=== PATIENT | male | born 1975 | race Caucasian/White ===

== ENCOUNTER 2020-05-17 07:45 | Outpatient (CLI) | payer BC ==
[2020-05-17 13:29] LABS: ALBUMIN 4.2 g/dL (3.2-5.5); ALBUMIN/GLOBULIN RATIO 1.4 (1.0-2.2); ALKALINE PHOSPHATASE 35 IU/L (42-121); ALT ALANINE AMINOTRANSFERASE 21 IU/L (10-60); AST ASPARTATE AMINOTRANSFERASE 19 IU/L (10-42); BILIRUBIN,TOTAL 0.8 mg/dL (0.2-1.0); BUN - BLOOD UREA NITROGEN 14 mg/dL (6-20); CALCIUM 9.3 mg/dL (8.5-10.3); CARBON DIOXIDE - CO2 27 mmol/L (21-32); CHLORIDE 101 mmol/L (101-111); CHOL/HDL RATIO 2.8 (<5.0); CHOLESTEROL 194 mg/dL; CREATININE 0.8 mg/dL (0.6-1.2); GLUCOSE 108 mg/dL (70-100); HDL CHOLESTEROL 69 mg/dL; LDL CHOLESTEROL,CALCULATED 104 mg/dL; LDL/HDL RATIO 1.5 (<3.6); TOTAL PROTEIN 7.1 g/dL (6.7-8.2); VLDL CHOLESTEROL 21 mg/dL
[2020-05-17 13:30] LABS: BASOPHILS % (AUTO) 0.5 %; EOSINOPHILS # (AUTO) 0.1 10^3/uL (0.0-0.7); EOSINOPHILS % (AUTO) 1.8 %; HGB - HEMOGLOBIN 15.1 g/dL (14.0-18.0); LYMPHOCYTES # (AUTO) 1.6 10^3/uL (1.5-3.5); LYMPHOCYTES % (AUTO) 35.9 %; MEAN CORPUSCULAR HEMOGLOBIN 30.4 pg (27.0-31.0); MEAN CORPUSCULAR HGB CONC 32.7 g/dL (32.0-36.0); MEAN CORPUSCULAR VOLUME 93.1 fL (80.0-94.0); MEAN PLATELET VOLUME 11.9 fL (7.4-11.4); MONOCYTES # (AUTO) 0.4 10^3/uL (0.0-1.0); MONOCYTES % (AUTO) 9.4 %; NEUTROPHILS # (AUTO) 2.3 10^3/uL (1.5-6.6); NEUTROPHILS % (AUTO) 52.2 %; PLT - PLATELET COUNT 175 10^3/uL (130-450); RED BLOOD COUNT 4.96 10^6/uL (4.70-6.10); WHITE BLOOD COUNT 4.4 x10^3/uL (4.8-10.8)
== END 2020-05-17 23:59 | disposition home or self-care (01) ==
LOC: LAB.WCP 07:45
PROVIDERS: ATTEND Family Medicine
DX: Z00.00 Encounter for general adult medical examination without abnormal findings (principal); I10 Essential (primary) hypertension; F41.9 Anxiety disorder, unspecified
CPT/HCPCS: 36415; 80053; 80061; 83721; 84443; 85025

== ENCOUNTER 2020-05-23 17:06 | Outpatient (CLI) | payer BC | END 2020-05-23 17:07 | disposition critical access hospital (66) | LOC: EMS 17:06 | PROVIDERS: ATTEND Surgery | DX: R11.2 Nausea with vomiting, unspecified (principal); R51.9 Headache, unspecified | CPT/HCPCS: A0425; A0427 ==

== ENCOUNTER 2020-05-23 17:15 | Emergency (ER) | payer BC ==
[2020-05-23] MEDS ORDERED: PROMETHAZINE INJ 25 MG in SODIUM CHLORIDE 0.9% 50 ML IV STA (17:25)
[2020-05-23] MEDS ORDERED: SODIUM CHLORIDE 0.9% 1,000 ML IV STA (17:25)
--- NOTE | 2020-05-23 17:50 | ED Physician Documentation ---
History of Present Illness - Stated complaint Stated Complaint: N/V - Chief complaint Chief Complaint: Abd Pain - History obtained from History obtained from: Patient, EMS - History of Present Illness Timing: Today, How many hours ago (2) Pain level max: 10 Pain level now: 10 - Additonal information Additional information: 44-year-old male presents to the emergency department with nausea and vomiting that started about 2 hours prior to arrival. Since then has had a gradual onset headache, right side of the head. Rates as an 8 out of 10. Nothing makes it better or worse. Given Zofran with EMS without relief. Denies any trauma. Denies any alcohol. States [facility] states that the vomiting started shortly after that. Patient has a history of hypertension. Patient has a history of hypertension. Recently had his losartan increased from 50 mg to 100 mg Review of Systems Ten Systems: 10 systems reviewed and negative Constitutional: denies: Fever, Chills Ears: denies: Ear pain Nose: denies: Rhinorrhea / runny nose, Congestion Respiratory: denies: Cough GI: denies: Nausea, Vomiting, Diarrhea PD PAST MEDICAL HISTORY - Past Medical History Past Medical History: Yes Cardiovascular: Hypertension - Present Medications Home Medications: Ambulatory Orders Medication Instructions Recorded Confirmed Losartan [Cozaar] 100 mg PO DAILY 05/23/20 05/23/20 - Allergies Allergies/Adverse Reactions: Allergies Allergy/AdvReac Type Severity Reaction Status Date / Time No Known Drug Allergies Allergy Verified 05/23/20 17:23 - Living Situation Living Situation: reports: With family Living Arrangement: reports: At home - Social History Does the pt drink ETOH?: Yes - Family History Family history: reports: Non contributory PD ED PE NORMAL - Vitals Vital signs reviewed: Yes - General General: No acute distress, Well developed/nourished, Other (drowsy, keeps eyes closed, answers appropriately) - HEENT HEENT: Atraumatic, PERRL, Moist mucous membranes - Neck Neck: Supple, no meningeal sign - Cardiac Cardiac: RRR, Strong equal pulses - Respiratory Respiratory: No respiratory distress, Clear bilaterally - Abdomen Abdomen: Soft, Non tender, Non distended - Derm Derm: Warm and dry - Extremities Extremities: No edema, No calf tenderness / cord - Neuro Neuro: Other (alert, drowsy) - Psych Psych: Normal mood, Normal affect Results - Vitals Vitals: Vital Signs - 24 hr 05/23/20 05/23/20 05/23/20 17:23 18:02 18:12 Temperature 36.1 C L Heart Rate 77 85 82 Respiratory 24 16 18 Rate Blood Pressure 154/88 H 137/90 H 137/90 H O2 Saturation 100 100 98 05/23/20 05/23/20 05/23/20 18:13 18:24 18:25 Temperature Heart Rate 82 85 101 H Respiratory 13 12 40 H Rate Blood Pressure 167/84 H 133/107 H O2 Saturation 99 100 100 05/23/20 05/23/20 05/23/20 18:26 18:32 18:38 Temperature Heart Rate 100 88 50 L Respiratory 16 15 Rate Blood Pressure 91/34 L 145/112 H 151/64 H O2 Saturation 100 100 100 05/23/20 05/23/20 05/23/20 18:40 18:43 18:46 Temperature Heart Rate 78 85 81 Respiratory 13 13 14 Rate Blood Pressure 142/74 H 142/74 H 138/78 H O2 Saturation 100 100 100 Oxygen O2 Source Mechanical ventilator - Labs Labs: Laboratory Tests 05/23/20 05/23/20 05/23/20 17:50 17:57 17:57 WBC 12.2 H RBC 4.85 Hgb 14.9 Hct 44.0 MCV 90.7 MCH 30.7 MCHC 33.9 RDW 11.8 L Plt Count 159 MPV 11.3 Neut # (Auto) 10.6 H Lymph # (Auto) 1.2 L [place] # (Auto) 0.4 Eos # (Auto) 0.0 Baso # (Auto) 0.0 Absolute Nucleated RBC 0.00 Nucleated RBC % 0.0 PT 13.3 H INR 1.2 APTT 21.0 L Sodium 140 Potassium 3.9 Chloride 103 Carbon Dioxide 25 Anion Gap 12.0 BUN 12 Creatinine 0.8 Estimated GFR (MDRD) 105 Glucose 156 H Calcium 9.6 Total Bilirubin 0.7 AST 22 ALT 20 Alkaline Phosphatase 35 L Total Protein 7.3 Albumin 4.4 Globulin 2.9 Albumin/Globulin Ratio 1.5 Lipase 39 Nasal Adenovirus (PCR) Nasal B. parapertussis DNA (PCR) Nasal Coronavir 229E PCR Nasal Coronavir HKU1 PCR Nasal Coronavir NL63 PCR Nasal Coronavir OC43 PCR Nasal Enterovir/Rhinovir PCR Nasal Influenza B PCR Nasal Influenza A PCR Nasal Parainfluen 1 PCR Nasal Parainfluen 2 PCR Nasal Parainfluen 3 PCR Nasal Parainfluen 4 PCR Nasal RSV (PCR) Nasal B.pertussis DNA PCR Nasal C.pneumoniae (PCR) Donte Human Metapneumo PCR Nasal M.pneumoniae (PCR) Nasal SARS-CoV-2 (PCR) Ethyl Alcohol < 5.0 05/23/20 18:35 WBC RBC Hgb Hct MCV MCH MCHC RDW Plt Count MPV Neut # (Auto) Lymph # (Auto) [place] # (Auto) Eos # (Auto) Baso # (Auto) Absolute Nucleated RBC Nucleated RBC % PT INR APTT Sodium Potassium Chloride Carbon Dioxide Anion Gap BUN Creatinine Estimated GFR (MDRD) Glucose Calcium Total Bilirubin AST ALT Alkaline Phosphatase Total Protein Albumin Globulin Albumin/Globulin Ratio Lipase Nasal Adenovirus (PCR) NOT DETECTED Nasal B. parapertussis DNA (PCR) NOT DETECTED Nasal Coronavir 229E PCR NOT DETECTED Nasal Coronavir HKU1 PCR NOT DETECTED Nasal Coronavir NL63 PCR NOT DETECTED Nasal Coronavir OC43 PCR NOT DETECTED Nasal Enterovir/Rhinovir PCR NOT DETECTED Nasal Influenza B PCR NOT DETECTED Nasal Influenza A PCR NOT DETECTED Nasal Parainfluen 1 PCR NOT DETECTED Nasal Parainfluen 2 PCR NOT DETECTED Nasal Parainfluen 3 PCR NOT DETECTED Nasal Parainfluen 4 PCR NOT DETECTED Nasal RSV (PCR) NOT DETECTED Nasal B.pertussis DNA PCR NOT DETECTED Nasal C.pneumoniae (PCR) NOT DETECTED Donte Human Metapneumo PCR NOT DETECTED Nasal M.pneumoniae (PCR) NOT DETECTED Nasal SARS-CoV-2 (PCR) NOT DETECTED Ethyl Alcohol - Rads (name of study) head CT Radiology: Prelim report reviewed, EMP read contemporaneously, See rad report cxr Radiology: Prelim report reviewed, EMP read contemporaneously, See rad report Procedures - Intubation Provider: Emergency physician Medications: Etomidate, Rocuronium Blade: Glidescope Tube: Size-enter number (7.5), Marked at teeth-enter cm (23) Route: Oral Confirmation: Direct visualization, Bilateral breath sounds, No abdominal breath sound, End tidal CO2, Pulse ox, Chest xray Complications: No compications PD MEDICAL DECISION MAKING - ED course Complexity details: reviewed results, re-evaluated patient, considered differential, d/w patient, d/w principal consultant ED course: contacted [facility] @ [phone] for transfer. [facility] paged to the ER for transport. Callback received from neurosurgery, Dr. Garza at approximately 1818. At that point the patient started to deteriorate further, became less responsive and started to have posturing. No longer verbal. The patient was then intubated. Mannitol and hypertonic saline were given. Pupils remain equal and reactive. Patient became briefly hypotensive after intubation, systolic around 90-95. The mannitol was stopped, the hypertonic saline was continued. Nicardipine drip was started as well. BP improved. Goal is less than 140 SBP. Discussed the case with the ER physician at [facility] in [place]. Patient was life flighted to [facility] for definitive care. Patient is not on any blood thinners. Case was discussed with his at bedside. COBRA forms completed. This document was made in part using voice recognition software. While efforts are made to proofread this document, sound alike and grammatical errors may occur. IMPRESSION: Prominent intraparenchymal hemorrhage, which is centered within the right frontal lobe. There is associated mass effect seen, with midline shift of 8 to 9 mm. The right lateral ventricle is effaced. The basal cisterns remain patent, yet are narrowed. There is minimal, early subfalcine herniation. No: Clinical finding of acute intracranial hemorrhage discussed by telephone with Dr. Yi at 5:02 PM [place] time on 05/23/2020. IMPRESSION: Appropriate position of endotracheal tube. Nonspecific increased interstitial markings bilaterally. Departure - Departure Disposition: 02 Transfer Acute Care Hosp Clinical Impression: Intracerebral hemorrhage Qualifiers: Intracerebral hemorrhage etiology: nontraumatic Cerebral hemorrhage location: cerebral hemisphere, unspecified portion Laterality: right Qualified Code(s): I61.2 - Nontraumatic intracerebral hemorrhage in hemisphere, unspecified Condition: Serious Discharge Date/Time: 05/23/20 18:57
[2020-05-23] MEDS ORDERED: levETIRAcetam INJ 1,000 MG in SODIUM CHLORIDE 0.9% 100ML 100 ML IV STA (18:03)
[2020-05-23] MEDS ORDERED: MANNITOL 20% 500 ML IV ONE (18:04)
[2020-05-23 18:05] LABS: BASOPHILS % (AUTO) 0.2 %; EOSINOPHILS % (AUTO) 0.1 %; HGB - HEMOGLOBIN 14.9 g/dL (14.0-18.0); LYMPHOCYTES # (AUTO) 1.2 10^3/uL (1.5-3.5); LYMPHOCYTES % (AUTO) 9.5 %; MEAN CORPUSCULAR HEMOGLOBIN 30.7 pg (27.0-31.0); MEAN CORPUSCULAR HGB CONC 33.9 g/dL (32.0-36.0); MEAN CORPUSCULAR VOLUME 90.7 fL (80.0-94.0); MEAN PLATELET VOLUME 11.3 fL (7.4-11.4); MONOCYTES # (AUTO) 0.4 10^3/uL (0.0-1.0); MONOCYTES % (AUTO) 3.1 %; NEUTROPHILS # (AUTO) 10.6 10^3/uL (1.5-6.6); NEUTROPHILS % (AUTO) 86.8 %; PLT - PLATELET COUNT 159 10^3/uL (130-450); RED BLOOD COUNT 4.85 10^6/uL (4.70-6.10); RED CELL DISTRIBUTION WIDTH 11.8 % (12.0-15.0); WHITE BLOOD COUNT 12.2 x10^3/uL (4.8-10.8)
--- NOTE | 2020-05-23 18:06 | CT Report ---
PROCEDURE: HEAD WO INDICATIONS: headache, vomiting TECHNIQUE: Noncontrast 4.5 mm thick angled axial sections acquired from the foramen magnum to the vertex. For r adiation dose reduction, the following was used: automated exposure control, adjustment of mA and/or kV according to patient size. COMPARISON: None. FINDINGS: Image quality: Motion artifact is noted. Images were repeated, with some improvement. CSF spaces: Basal cisterns remain patent, yet are narrowed. No extra-axial fluid collections. There is effacement of the right lateral ventricle. Brain: Prominent intraparenchymal hemorrhage is seen, which is centered within the deep white matter of the right frontal lobe. This measures 6.2 cm AP. There is associated mass effect, with midline sh ift of 8 to 9 mm. There is minimal, early subfalcine herniation. Ross-white matter interface is normal. Skull and face: Calvarium and visualized facial bones are intact, without suspicious lesions. Sinuses: Visualized sinuses and mastoids are clear. IMPRESSION: Prominent intraparenchymal hemorrhage, which is centered within the right frontal lobe. There is associated mass effect seen, with midline shift of 8 to 9 mm. The right lateral ventricle is effaced. The basal cisterns remain patent, yet are narrowed. There is minimal, early subfalcine swathi iation. No: Clinical finding of acute intracranial hemorrhage discussed by telephone with Dr. Yi at 5:02 PM [place] time on 05/23/2020. Reviewed by: Luis Craven MD on 05/23/2020 5:05 PM [place] Approved by: Luis Craven MD on 05/23/2020 5:05 PM [place] Station ID: [id number]
[2020-05-23] MEDS ORDERED: NICARDIPINE HCL 25 MG in SODIUM CHLORIDE 0.9% 240 ML IV STA (18:11)
[2020-05-23] MEDS ORDERED: ETOMIDATE 40 MG/20 ML VIAL IVP STA (18:13)
[2020-05-23] MEDS ORDERED: ROCURONIUM 50 MG/5 ML VIAL IVP STA (18:13)
[2020-05-23 18:19] LABS: ALBUMIN 4.4 g/dL (3.2-5.5); ALBUMIN/GLOBULIN RATIO 1.5 (1.0-2.2); ALKALINE PHOSPHATASE 35 IU/L (42-121); ALT ALANINE AMINOTRANSFERASE 20 IU/L (10-60); AST ASPARTATE AMINOTRANSFERASE 22 IU/L (10-42); BILIRUBIN,TOTAL 0.7 mg/dL (0.2-1.0); BUN - BLOOD UREA NITROGEN 12 mg/dL (6-20); CALCIUM 9.6 mg/dL (8.5-10.3); CARBON DIOXIDE - CO2 25 mmol/L (21-32); CHLORIDE 103 mmol/L (101-111); CREATININE 0.8 mg/dL (0.6-1.2); GLUCOSE 156 mg/dL (70-100); LIPASE 39 U/L (22-51); TOTAL PROTEIN 7.3 g/dL (6.7-8.2)
[2020-05-23 18:23] LABS: INR 1.2 (0.8-1.2); PT - PROTHROMBIN TIME 13.3 secs (9.9-12.6)
[2020-05-23] MEDS ORDERED: VECURONIUM 10 MG VIAL IVP STA (18:30)
--- NOTE | 2020-05-23 18:47 | XRAY Report ---
PROCEDURE: Chest for Line Placement INDICATIONS: Status post intubation TECHNIQUE: One view of the chest was acquired. COMPARISON: None. FINDINGS: Surgical changes and devices: Endotracheal tube terminates within the thoracic trachea approximately 3 cm from the didier. Lungs and pleura: Lungs are symmetrically hyperexpanded. Mildly increased interstitial markings in rudolph th lungs is likely related to AP technique and low lung volumes, although pulmonary edema or pneumoni tis would appear similar. Mediastinum: Mediastinal contours appear normal. Heart size is normal. Bones and chest wall: No suspicious bony lesions. Overlying soft tissues appear unremarkable. IMPRESSION: Appropriate position of endotracheal tube. Nonspecific increased interstitial markings bilaterally. Reviewed by: Sabas Dang MD on 05/23/2020 6:46 PM PST Approved by: Sabas Dang MD on 05/23/2020 6:46 PM PST Station ID: [id number]
[2020-05-23 18:54] VITALS: BP 138/78
[2020-05-23] MEDS ORDERED: SODIUM CHLORIDE 3% HYPERTONIC 500 ML IV SCH (19:00)
[2020-05-23 19:35] LABS: C. PNEUMONIAE- RESP PCR PANEL NOT DETECTED
== END 2020-05-23 18:57 | disposition short-term general hospital (02) ==
LOC: EDUNIT# → ED 17:15
DX: I61.2 Nontraumatic intracerebral hemorrhage in hemisphere, unspecified (principal); I95.9 Hypotension, unspecified; Z20.822 Contact with and (suspected) exposure to COVID-19; I10 Essential (primary) hypertension
CPT/HCPCS: 0202U; 31500; 36415; 70450; 71045; 80053; 80320; 83690; 85025; 85610; 85730; 96365; 96368; 96375; 99284; 99291; 99292; J7040

== ENCOUNTER 2020-07-06 09:54 | Outpatient (CLI) | payer BC ==
[2020-07-06 10:16] LABS: INR 2.6 (0.8-1.2); PT - PROTHROMBIN TIME 27.3 secs (9.9-12.6)
== END 2020-07-06 09:55 | disposition home or self-care (01) ==
LOC: LAB 09:54
PROVIDERS: ATTEND Pharmacist
DX: I26.94 Multiple subsegmental thrombotic pulmonary emboli without acute cor pulmonale (principal)
CPT/HCPCS: 36415; 85610

== ENCOUNTER 2020-07-18 13:47 | Outpatient (CLI) | payer BC ==
--- NOTE | 2020-07-18 14:44 | CT Report ---
PROCEDURE: HEAD WO INDICATIONS: INTRAPARENCHYMAL HEMORRHAGE OF BRAIN TECHNIQUE: Noncontrast 4.5 mm thick angled axial sections acquired from the foramen magnum to the vertex. For r adiation dose reduction, the following was used: automated exposure control, adjustment of mA and/or kV according to patient size. COMPARISON: 05/23/2020 FINDINGS: Postsurgical changes due to right frontal craniotomy which was performed in the interval since the pr ior study for the evacuation of the previously seen right frontal intraparenchymal hemorrhage. There is no hyperdense intraparenchymal hemorrhage seen currently. There is some encephalomalacia and presu med gliosis in the region. No mass effect or midline shift. Ross-white matter differentiation is main tained. No gross orbital abnormality. Paranasal sinuses and mastoid air cells are clear. IMPRESSION: Postsurgical changes of right frontal craniotomy for evacuation of previously seen right frontal pare nchymal hemorrhage. Mild encephalomalacia and gliosis in the right frontal region. No acute finding. Reviewed by: Sabas Dang MD on 07/18/2020 2:43 PM PDT Approved by: Sabas Dang MD on 07/18/2020 2:43 PM PDT Station ID: [id number]
== END 2020-07-18 13:48 | disposition home or self-care (01) ==
LOC: DI 13:47
PROVIDERS: ATTEND Family Medicine
DX: I61.9 Nontraumatic intracerebral hemorrhage, unspecified (principal); G93.89 Other specified disorders of brain

== ENCOUNTER 2020-07-24 16:42 | Outpatient (CLI) | payer BC ==
--- OUTSIDE RECORDS SUMMARY | 2020-08-02 21:07 | EXTERNAL MEDICAL SUMMARY RPT | Continuity of Care Document ---
:1975 Demographics Phone Unavailable Preferred Language Unknown Marital Status Unknown Jewish Affiliation Unknown Race Unknown Ethnic Group Unknown Author Organization [facility] Address [address] [phone] Phone Problems date description facility [id number] Altered Mental Status [facility] [id number] Nontraumatic intracerebral hemorrhage, [facility] unspecified [id number] Brain Dysfunction [facility] [id number] Dysphagia, unspecified [facility] [id number] Encounter for surgical aftercare [facility] following surgery on the nervous system [id number] Essential (primary) hypertension [facility] [id number] Foot drop, left foot [facility] [id number] Hemiplegia, unspecified affecting left [facility] nondominant side [id number] Hypo-osmolality and hyponatremia [facility] [id number] manager intermediate (current) use of [facility] anticoagulants [id number] Multiple subsegmental pulmonary emboli [facility] without acute cor pulmonale [id number] Neurogenic bowel, not elsewhere [facility] classified [id number] Neuromuscular dysfunction of bladder, [facility] unspecified [id number] Retention of urine, unspecified [facility] Social History date description facility [id number]
== END 2020-07-24 16:43 ==
LOC: EMS 16:42
DX: R56.9 Unspecified convulsions (principal)

== ENCOUNTER 2020-07-24 17:23 | Emergency (ER) | payer BC ==
[2020-07-24 17:30] VITALS: BP 130/92
--- NOTE | 2020-07-24 17:49 | ED Physician Documentation ---
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 He was sent to [facility] where he did have clot evacuation done. Per report from the the angiography was negative for AVM. He was on Keppra which was discontinued 3 days ago. He had no seizures perioperatively or in recovery. In rehab he did have 2 syncopal episodes. Today he was in his usual state of health out in the greenhouse where it was quite warm. He started to feel dizzy and lightheaded and he was assisted outside and then sitting and then his right arm contractured and he became nearly unconscious but not completely unconscious. There was no other seizure-like activity. He recovered quickly and feels back to normal now other than being just tired. Review of Systems Ten Systems: 10 systems reviewed and negative Constitutional: reports: Reviewed and negative Ears: reports: Reviewed and negative Throat: reports: Reviewed and negative Cardiac: reports: Reviewed and negative Respiratory: reports: Reviewed and negative PD PAST MEDICAL HISTORY - Past Medical History Cardiovascular: Hypertension - Present Medications Home Medications: Ambulatory Orders Medication Instructions Recorded Confirmed Losartan [Cozaar] 75 mg PO DAILY 05/23/20 05/23/20 Amlodipine Besylate [Norvasc] 1 tab PO DAILY 07/24/20 07/24/20 Carvedilol [Coreg] 1 tab PO BID 07/24/20 07/24/20 Famotidine [Pepcid] 1 tab PO DAILY 07/24/20 07/24/20 Warfarin [Coumadin] 5 mg PO 07/24/20 Warfarin [Coumadin] 7.5 mg PO 07/24/20 - Allergies Allergies/Adverse Reactions: Allergies Allergy/AdvReac Type Severity Reaction Status Date / Time No Known Drug Allergies Allergy Verified 07/24/20 17:29 - Social History Does the pt drink ETOH?: Yes PD ED PE NORMAL - Vitals Vital signs reviewed: Yes - General General: Alert and oriented X 3, No acute distress - HEENT HEENT: PERRL, EOMI - Neck Neck: Supple, no meningeal sign, No bony TTP - Cardiac Cardiac: RRR, No murmur - Respiratory Respiratory: No respiratory distress, Clear bilaterally - Abdomen Abdomen: Normal bowel sounds, Soft, Non tender - Back Back: No CVA TTP, No spinal TTP - Derm Derm: Normal color, Warm and dry - Extremities Extremities: No edema, No calf tenderness / cord - Neuro Neuro: Alert and oriented X 3, Normal speech, Other (Weak in the left arm and left leg, he is able to get the left arm up over his head and lift the left leg off the bed.) Results - Vitals Vitals: Vital Signs - 24 hr 07/24/20 07/24/20 17:24 18:04 Temperature 36.4 C L 36.4 C L Heart Rate 64 64 Heart Rate [ 60 Sitting] Heart Rate [ 58 L Standing] Heart Rate [ 62 Supine] Respiratory 18 18 Rate Blood Pressure 130/92 H 130/92 H Blood Pressure 119/79 [Sitting] Blood Pressure 132/84 H [Standing] Blood Pressure 108/71 [Supine] O2 Saturation 100 100 Oxygen O2 Source Room air - EKG (time done) 1753 Rate: Rate (enter#) (54) Rhythm: NSR [place]: Normal Intervals: Normal [place] QRS: LVH (borderline) Ischemia: Normal ST segments Computer interpretation: Agree with computer - Labs Labs: Laboratory Tests 07/24/20 07/24/20 07/24/20 18:10 18:10 18:10 WBC 6.2 RBC 4.90 Hgb 14.7 Hct 43.5 MCV 88.8 MCH 30.0 MCHC 33.8 RDW 12.0 Plt Count 198 MPV 10.4 Neut # (Auto) 3.9 Lymph # (Auto) 1.7 [place] # (Auto) 0.5 Eos # (Auto) 0.1 Baso # (Auto) 0.0 Absolute Nucleated RBC 0.00 Nucleated RBC % 0.0 PT 31.2 H INR 3.0 H Sodium 138 Potassium 4.2 Chloride 102 Carbon Dioxide 27 Anion Gap 9.0 BUN 13 Creatinine 0.8 Estimated GFR (MDRD) 105 Glucose 112 H Calcium 9.8 Total Bilirubin 0.4 AST 14 ALT 16 Alkaline Phosphatase 39 L Total Protein 7.3 Albumin 4.3 Globulin 3.0 Albumin/Globulin Ratio 1.4 Prolactin 07/24/20 18:10 WBC RBC Hgb Hct MCV MCH MCHC RDW Plt Count MPV Neut # (Auto) Lymph # (Auto) [place] # (Auto) Eos # (Auto) Baso # (Auto) Absolute Nucleated RBC Nucleated RBC % PT INR Sodium Potassium Chloride Carbon Dioxide Anion Gap BUN Creatinine Estimated GFR (MDRD) Glucose Calcium Total Bilirubin AST ALT Alkaline Phosphatase Total Protein Albumin Globulin Albumin/Globulin Ratio Prolactin 14.00 - Rads (name of study) Ct Head Radiology: EMP read contemporaneously (NAD) PD MEDICAL DECISION MAKING - ED course ED course: 44-year-old gentleman who is actually recovering surprisingly well after a very large intracranial hemorrhage a couple of months ago presents after an episode today. The description, lack of complete unconsciousness, and lack of postictal period. Would suggest syncope as opposed to seizure. Departure - Departure Disposition: Home, Self Care Clinical Impression: Syncope Condition: Stable Instructions: ED Fainting Unkn Cause Comments: Your INR today was 3.0, as such only half dose of warfarin, 2.5 mg was given. Your prolactin level was 14, prolactin is a lab that has some utility in differentiating true seizure from other similar-looking events. The normal level of prolactin suggests against seizure, but cannot be relied on alone to rule out that the event was a seizure today. That said, given the other factors and description, I doubt this was a seizure. You should touch base with your neurologist but I would not restart [facility] at this juncture. Discharge Date/Time: 07/24/20 19:20
[2020-07-24 18:15] LABS: BASOPHILS % (AUTO) 0.5 %; EOSINOPHILS # (AUTO) 0.1 10^3/uL (0.0-0.7); EOSINOPHILS % (AUTO) 1.1 %; HCT - HEMATOCRIT 43.5 % (42.0-52.0); HGB - HEMOGLOBIN 14.7 g/dL (14.0-18.0); LYMPHOCYTES # (AUTO) 1.7 10^3/uL (1.5-3.5); LYMPHOCYTES % (AUTO) 27.7 %; MEAN CORPUSCULAR HGB CONC 33.8 g/dL (32.0-36.0); MEAN CORPUSCULAR VOLUME 88.8 fL (80.0-94.0); MEAN PLATELET VOLUME 10.4 fL (7.4-11.4); MONOCYTES # (AUTO) 0.5 10^3/uL (0.0-1.0); MONOCYTES % (AUTO) 8.2 %; NEUTROPHILS # (AUTO) 3.9 10^3/uL (1.5-6.6); NEUTROPHILS % (AUTO) 62.2 %; PLT - PLATELET COUNT 198 10^3/uL (130-450); WHITE BLOOD COUNT 6.2 x10^3/uL (4.8-10.8)
[2020-07-24 18:21] LABS: PT - PROTHROMBIN TIME 31.2 secs (9.9-12.6)
[2020-07-24 18:26] LABS: ALBUMIN 4.3 g/dL (3.2-5.5); ALBUMIN/GLOBULIN RATIO 1.4 (1.0-2.2); BILIRUBIN,TOTAL 0.4 mg/dL (0.2-1.0); CALCIUM 9.8 mg/dL (8.5-10.3); CREATININE 0.8 mg/dL (0.6-1.2); POTASSIUM 4.2 mmol/L (3.5-5.0); TOTAL PROTEIN 7.3 g/dL (6.7-8.2)
--- NOTE | 2020-07-24 19:04 | CT Report ---
PROCEDURE: HEAD WO INDICATIONS: seizure vs syncope TECHNIQUE: Noncontrast 4.5 mm thick angled axial sections acquired from the foramen magnum to the vertex. For r adiation dose reduction, the following was used: automated exposure control, adjustment of mA and/or kV according to patient size. COMPARISON: None. FINDINGS: Image quality: Excellent. CSF spaces: Basal cisterns are patent. No extra-axial fluid collections. Ventricles are normal in size and shape. Brain: No midline shift. Chronic appearing and encephalomalacia involving the right frontal lobe. No intracranial masses or hemorrhage. Ross-white matter interface is normal. Skull and face: Postsurgical changes related to right craniotomy Sinuses: Visualized sinuses and mastoids are clear. IMPRESSION: No acute intracranial process. Reviewed by: Tristin Montanez MD on 07/24/2020 7:03 PM PDT Approved by: Tristin Montanez MD on 07/24/2020 7:03 PM PDT Station ID: [id number]
[2020-07-24] MEDS ORDERED: WARFARIN 5 MG TABLET PO STA (19:05)
== END 2020-07-24 19:20 | disposition home or self-care (01) ==
LOC: ED 17:23
DX: R55 Syncope and collapse (principal); I69.254 Hemiplegia and hemiparesis following other nontraumatic intracranial hemorrhage affecting left non-dominant side; Z79.01 Long term (current) use of anticoagulants; I10 Essential (primary) hypertension
CPT/HCPCS: 36415; 70450; 80053; 84146; 85025; 85610; 93005; 99284; A9270

== ENCOUNTER 2020-11-18 16:28 | Emergency (ER) | payer BC ==
--- NOTE | 2020-11-18 17:11 | ED Physician Documentation ---
History of Present Illness - Stated complaint Stated Complaint: HEAD INJ/FAINTED - Chief complaint Chief Complaint: Neuro - Additonal information Additional information: 45-year-old male presents the emergency department for concerns that he may have had a syncopal or a seizure episode. He reports that he was in his workshop and he sat on a chair. The next thing he knew he woke up on the ground and he had bitten his tongue which was bleeding. He thinks he may have struck his head on a table. 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 He was seen and transferred to [facility]. He was on Keppra for a brief period. He does continue to have a left- sided partial hemiplegia secondary to the stroke. He was started on baclofen for spasticity and paralysis. He took his first dose this morning. At this time he reports that he feels back to baseline with the exception of a mild headache. He does report a history of syncope in the past especially when he overexerted or got hot. But he always had warning signs at that time. This occurred with no warning whatsoever. He is followed by Dr. Dobson neurology at the [facility] as well as Dr. Yadav neurosurgical surgeon at [facility] Review of Systems Constitutional: denies: Fever, Chills Eyes: reports: Reviewed and negative Ears: reports: Reviewed and negative Nose: reports: Reviewed and negative Throat: reports: Reviewed and negative Cardiac: reports: Reviewed and negative Respiratory: reports: Reviewed and negative GI: reports: Reviewed and negative : reports: Reviewed and negative Skin: reports: Abrasion (s) (Right occiput). denies: Rash, Lesions Neurologic: reports: Focal weakness (Left-sided partial paralysis and spasticity.), Syncope, Seizure, Headache, LOC PD PAST MEDICAL HISTORY - Past Medical History Cardiovascular: Hypertension Neuro: CVA - Past Surgical History Past Surgical History: No - Present Medications Home Medications: Ambulatory Orders Medication Instructions Recorded Confirmed Losartan [Cozaar] 75 mg PO DAILY 05/23/20 11/18/20 Amlodipine Besylate [Norvasc] 1 tab PO DAILY 07/24/20 11/18/20 Carvedilol [Coreg] 1 tab PO BID 07/24/20 11/18/20 Sertraline HCl 100 mg PO DAILY PM 10/26/20 11/18/20 Baclofen 5 mg PO BID 11/18/20 11/18/20 Levetiracetam [Keppra] 500 mg PO BID #60 tablet 11/18/20 - Allergies Allergies/Adverse Reactions: Allergies Allergy/AdvReac Type Severity Reaction Status Date / Time No Known Drug Allergies Allergy Verified 10/26/20 10:39 - Social History Does the pt smoke?: No Smoking Status: Former smoker Does the pt drink ETOH?: Yes Does the pt have substance abuse?: No - Immunizations Immunizations are current?: Yes PD ED PE EXPANDED - General General: Alert, No acute distress, Well developed/nourished - Neck Neck: Supple w/out meningeal sx. No: Adenopathy - Cardiac Cardiac: Regular Rate, Radial strong equal, Pedal strong equal, Cap refill < 2 sec. No: Murmur Present - Respiratory Respiratory: Clear to ausultation liv. No: Distress, Labored - Abdomen Abdomen: Normal Bowel sounds. No: Tender to palpation - Derm Derm: Warm and dry, Abrasion (s) (Right occiput) - Extremities Extremities: Normal. No: Deformity, Tenderness - Neuro Neuro: Alert and Oriented X 3, CN deficit (Left sided partial paralysis and weakness. Mild left-sided facial droop which is baseline and not new), PERRL, Normal speech. No: Nystagmus - GCS Eye Opening: Spontaneous Motor: Obeys Commands Verbal: Oriented Total: 15 Results - Vitals Vitals: Vital Signs - 24 hr 11/18/20 11/18/20 11/18/20 16:34 17:06 17:36 Temperature 36.7 C Heart Rate 74 67 64 Respiratory 18 18 13 Rate Blood Pressure 122/108 H 116/77 116/75 O2 Saturation 99 98 96 11/18/20 11/18/20 11/18/20 18:00 18:30 19:35 Temperature 36.8 C Heart Rate 75 62 76 Respiratory 14 14 17 Rate Blood Pressure 121/83 H 116/75 121/81 H O2 Saturation 98 97 99 11/18/20 11/18/20 11/18/20 20:00 20:30 21:00 Temperature 36.6 C Heart Rate 69 63 63 Respiratory 14 13 16 Rate Blood Pressure 124/79 129/81 H 125/79 O2 Saturation 98 97 98 11/18/20 21:30 Temperature Heart Rate 66 Respiratory 13 Rate Blood Pressure 122/79 O2 Saturation 97 Oxygen O2 Source Room air - EKG (time done) 1716 Rate: Rate (enter#) (68) Rhythm: NSR, Wide complex tachycardia Intervals: Normal OH QRS: Normal Ischemia: Normal ST segments Compare to prior EKG: Old EKG unavailable Computer interpretation: Agree with computer - Labs Labs: Laboratory Tests 11/18/20 11/18/20 11/18/20 17:15 17:15 17:15 WBC 12.2 H RBC 5.03 Hgb 15.0 Hct 43.5 MCV 86.5 MCH 29.8 MCHC 34.5 RDW 11.9 L Plt Count 182 MPV 10.9 Neut # (Auto) 10.6 H Lymph # (Auto) 1.1 L [place] # (Auto) 0.4 Eos # (Auto) 0.1 Baso # (Auto) 0.0 Absolute Nucleated RBC 0.00 Nucleated RBC % 0.0 PT INR Sodium 137 Potassium 3.9 Chloride 101 Carbon Dioxide 25 Anion Gap 11.0 BUN 12 Creatinine 0.6 Estimated GFR (MDRD) 145 Glucose 147 H Calcium 9.8 Total Bilirubin 0.7 AST 23 ALT 31 Alkaline Phosphatase 40 L Troponin I High Sens 3.5 Total Protein 7.5 Albumin 4.6 Globulin 2.9 Albumin/Globulin Ratio 1.6 Lipase 37 Urine Color Urine Clarity Urine pH Ur Specific [place] Urine Protein Urine Glucose (UA) Urine Ketones Urine Occult Blood Urine Nitrite Urine Bilirubin Urine Urobilinogen Ur Leukocyte Esterase Ur Microscopic Review Urine Culture Comments Urine Opiates Screen Ur Oxycodone Screen Urine Methadone Screen Ur Propoxyphene Screen Ur Barbiturates Screen Ur Tricyclics Screen Ur Phencyclidine Scrn Ur Amphetamine Screen U Methamphetamines Scrn U Benzodiazepines Scrn Urine Cocaine Screen U Cannabinoids Screen 11/18/20 11/18/20 17:15 21:13 WBC RBC Hgb Hct MCV MCH MCHC RDW Plt Count MPV Neut # (Auto) Lymph # (Auto) [place] # (Auto) Eos # (Auto) Baso # (Auto) Absolute Nucleated RBC Nucleated RBC % PT 13.2 H INR 1.2 Sodium Potassium Chloride Carbon Dioxide Anion Gap BUN Creatinine Estimated GFR (MDRD) Glucose Calcium Total Bilirubin AST ALT Alkaline Phosphatase Troponin I High Sens Total Protein Albumin Globulin Albumin/Globulin Ratio Lipase Urine Color YELLOW Urine Clarity CLEAR Urine pH 7.5 Ur Specific [place] 1.010 Urine Protein NEGATIVE Urine Glucose (UA) NEGATIVE Urine Ketones NEGATIVE Urine Occult Blood NEGATIVE Urine Nitrite NEGATIVE Urine Bilirubin NEGATIVE Urine Urobilinogen 0.2 (NORMAL) Ur Leukocyte Esterase NEGATIVE Ur Microscopic Review NOT INDICATED Urine Culture Comments NOT INDICATED Urine Opiates Screen NEGATIVE Ur Oxycodone Screen NEGATIVE Urine Methadone Screen NEGATIVE Ur Propoxyphene Screen NEGATIVE Ur Barbiturates Screen NEGATIVE Ur Tricyclics Screen NEGATIVE Ur Phencyclidine Scrn NEGATIVE Ur Amphetamine Screen NEGATIVE U Methamphetamines Scrn NEGATIVE U Benzodiazepines Scrn NEGATIVE Urine Cocaine Screen NEGATIVE U Cannabinoids Screen POSITIVE H - Rads (name of study) Ct angio head Radiology: Final report received (Encephalomalacia malacia and mild to moderate distortion of the right temporoparietal brain parenchyma and patient with prior large hemorrhage.) PD MEDICAL DECISION MAKING - ED course Complexity details: reviewed results, re-evaluated patient, d/w patient, d/w family, d/w healthcare consultant (Dr. Roque) ED course: 45-year-old male presents to the emergency department for a lapse in consciousness in which he sat on a chair in his garage and then found himself on the ground. When he came to he thinks he had been out for 1 to 2 minutes but he had noted that he had bitten his tongue. He does have a history of a CVA secondary to a right temporal head bleed in April 2020. He has residual left- sided deficits. He presents to the ER at baseline with no new focal deficits sparing the known and unchanged left-sided weakness and mild facial droop. Screening labs do show a moderate leukocytosis likely stress marginalization. Chest x-ray without acute focal abnormality and urine shows no signs of infection. The urine drug screen is positive for cannabis only. EKG non ischemic. Troponin is negative He is followed by neurosurgery at [facility] as well as a neurologist at the [facility]. He did have plans for follow-up CT angio in November. His presentation is most consistent with likely seizure. We did repeat a CT angio of the head that did show the encephalomalacia in the area where he had previously hemorrhage but there were no new or acute findings. I did discuss this case with on-call neurosurgeon Dr. Roque at At [facility]. Based on here history and presentation he is also in agreement that this likely represented a seizure. He would recommend loading the patient with 1000 mg of Keppra and starting him on 5 mg twice daily. The p atient is to follow-up with neurosurgery and his neurologist in upcoming appointments. I discussed this plan with the patient and his and they are in agreement. Emergent return precautions were discussed for any persistence of new seizure activity. Departure - Departure Disposition: 01 Home, Self Care Clinical Impression: Seizure, History of CVA with residual deficit Condition: Stable Record reviewed to determine appropriate education?: Yes Prescriptions: Levetiracetam [Keppra] 500 mg PO BID #60 tablet Comments: Harry was seen in the ER today for a lapse in consciousness which sounds most like a seizure as he did bite his tongue. The CT angiogram of his head today shows encephalomalacia in the area where he previously had his intracerebral hemorrhage. However the CAT scan with a ngiography did not show any new bleeds or other worrisome findings. His screening labs today are also otherwise unremarkable. His chest x-ray did not show any concerning findings and his EKG was normal. I did discuss this case with neurosurgeon Dr. Roque at [facility]. He also suspects that you likely had a repeat seizure. He would like you to begin taking Keppra 500 mg twice daily. Neurosurgery at [facility] should be reaching out to you to follow-up. You are also to continue follow-up with your neurologist at the [facility]. If you feel that your seizures are worsening, you have any further lapses in consciousness, develop suddenly severe headache have any worsening neuro deficits then please return immediately to the ER for a second look.
[2020-11-18 17:24] LABS: BASOPHILS % (AUTO) 0.2 %; EOSINOPHILS # (AUTO) 0.1 10^3/uL (0.0-0.7); EOSINOPHILS % (AUTO) 0.5 %; HCT - HEMATOCRIT 43.5 % (42.0-52.0); LYMPHOCYTES # (AUTO) 1.1 10^3/uL (1.5-3.5); LYMPHOCYTES % (AUTO) 8.8 %; MEAN CORPUSCULAR HEMOGLOBIN 29.8 pg (27.0-31.0); MEAN CORPUSCULAR HGB CONC 34.5 g/dL (32.0-36.0); MEAN CORPUSCULAR VOLUME 86.5 fL (80.0-94.0); MEAN PLATELET VOLUME 10.9 fL (7.4-11.4); MONOCYTES # (AUTO) 0.4 10^3/uL (0.0-1.0); MONOCYTES % (AUTO) 3.1 %; NEUTROPHILS # (AUTO) 10.6 10^3/uL (1.5-6.6); NEUTROPHILS % (AUTO) 87.2 %; PLT - PLATELET COUNT 182 10^3/uL (130-450); RED BLOOD COUNT 5.03 10^6/uL (4.70-6.10); RED CELL DISTRIBUTION WIDTH 11.9 % (12.0-15.0); WHITE BLOOD COUNT 12.2 x10^3/uL (4.8-10.8)
[2020-11-18 17:32] LABS: INR 1.2 (0.8-1.2); PT - PROTHROMBIN TIME 13.2 secs (9.9-12.6)
[2020-11-18 17:42] LABS: ALBUMIN 4.6 g/dL (3.2-5.5); ALBUMIN/GLOBULIN RATIO 1.6 (1.0-2.2); BILIRUBIN,TOTAL 0.7 mg/dL (0.2-1.0); CALCIUM 9.8 mg/dL (8.5-10.3); CREATININE 0.6 mg/dL (0.6-1.2); POTASSIUM 3.9 mmol/L (3.5-5.0); TOTAL PROTEIN 7.5 g/dL (6.7-8.2)
--- NOTE | 2020-11-18 18:10 | XRAY Report ---
PROCEDURE: Chest 1 View X-Ray INDICATIONS: Chest Pain TECHNIQUE: One view of the chest was acquired. COMPARISON: 05/23/2020 chest plain film FINDINGS: Surgical changes and devices: None. Lungs and pleura: No pleural effusions or pneumothorax. Lungs are clear. Mediastinum: Mediastinal contours appear normal. Heart size is normal. Bones and chest wall: No suspicious bony lesions. Overlying soft tissues appear unremarkable. IMPRESSION: Normal for age, source of current symptoms is not seen. Reviewed by: Shar Joshi MD on 11/18/2020 6:08 PM PDT Approved by: Shar Joshi MD on 11/18/2020 6:08 PM PDT Station ID: [id number]
[2020-11-18] MEDS ORDERED: IOPAMIDOL-300 100 ML VIAL ONE (19:01)
[2020-11-18] MEDS ORDERED: IOVERSOL 320 100 ML VIAL IVP ONE (19:10)
--- NOTE | 2020-11-18 20:24 | CT Report ---
PROCEDURE: ANGIO HEAD W/WO INDICATIONS: L sided facial droop CONTRAST: IV CONTRAST: Isovue 300 ml: 80 PO CONTRAST: *NO PO CONTRAST TECHNIQUE: Precontrast 4.5 mm thick angled axial sections acquired from the foramen magnum to the vertex. Afte r the administration of intravenous contrast, 1 mm thick sections acquired through the [place] of [place] is. Postcontrast 4.5 mm thick sections then re-acquired from the foramen magnum to the vertex. 3-di mensional bvrmzuv-wwsdcumek-kxbybzwxwb (MIP) and/or volume rendering reformats were acquired of the c entral intracranial vasculature. For radiation dose reduction, the following was used: automated ex posure control, adjustment of mA and/or kV according to patient size. COMPARISON: Prior head CT scanning 07/24/2020 and 07/18/2020, and 05/23/2020 FINDINGS: Image quality: Excellent. Anterior circulation: Intracranial internal carotid arteries are normal in size and flow. The flow within the paired anterior cerebral arteries is normal and symmetric. The flow within the middle cer ebral arteries is normal and symmetric. The anterior communicating artery is seen. No aneurysms are seen. Posterior circulation: Visualized portions of the vertebral arteries demonstrate normal caliber, and join to form a normal appearing basilar artery. Flow within the posterior cerebral arteries is norm al and symmetric. No aneurysms are seen. CSF spaces: Ventricles are asymmetric with asymmetric enlargement of the right lateral ventricle ass ociated with encephalomalacia from prior right temporal parietal presumed stroke. In size and shape. Basal cisterns are patent. No extra-axial fluid collections. Brain: No midline shift. No intracranial bleeds or definite masses. Ross-white matter interface ap pears intact on the left but mildly heterogeneous in the area of encephalomalacia on the right especi ally on postcontrast imaging, in this patient with prior documented intracranial hemorrhage in that a johnna in April of this year.. Skull and face: Calvarium and facial bones appear intact, without suspicious lesions. Prior right p arietal craniotomy. Sinuses: Visualized sinuses and mastoids are clear. IMPRESSION: Encephalomalacia and mild to moderate distortion of the right temporoparietal brain parenchyma, in th is patient with prior large hemorrhage in that area in April of this year. A source of new symptoma tology is not found but follow-up by elective contrast-enhanced MR scanning may be warranted for more accurate detection of ischemic injury and to ensure that mass lesion is not present in the area of e ncephalomalacia. Reviewed by: Shar Joshi MD on 11/18/2020 8:22 PM PDT Approved by: Shar Joshi MD on 11/18/2020 8:22 PM PDT Station ID: [id number]
[2020-11-18 21:22] LABS: MUDS CUTOFF CONCENTRATIONS CUTOFF CONC BELOW:
[2020-11-18 21:23] LABS: BILIRUBIN,URINE NEGATIVE (NEGATIVE); GLUCOSE, URINE (UA) NEGATIVE (NEGATIVE); KETONES,URINE (UA) NEGATIVE (NEGATIVE); LEUKOCYTE ESTERASE, URINE NEGATIVE (NEGATIVE); NITRITE,URINE NEGATIVE (NEGATIVE); OCCULT BLOOD,URINE NEGATIVE (NEGATIVE); PH,URINE 7.5 PH (5.0-7.5); PROTEIN,URINE NEGATIVE (NEGATIVE); UROBILINOGEN,URINE 0.2 (NORMAL) E.U./dL (NORMAL)
[2020-11-18 21:24] LABS: CLARITY,URINE CLEAR (CLEAR)
[2020-11-18 21:34] LABS: AMPHETAMINE SCREEN,URINE NEGATIVE (NEGATIVE); BARBITURATE SCREEN,UR NEGATIVE (NEGATIVE); BENZODIAZEPINES SCREEN, URINE NEGATIVE (NEGATIVE); COCAINE SCREEN URINE NEGATIVE (NEGATIVE); METHADONE SCREEN, URINE NEGATIVE (NEGATIVE); METHAMPHETAMINES SCREEN, URINE NEGATIVE (NEGATIVE); OPIATE SCREEN, URINE NEGATIVE (NEGATIVE); OXYCODONE SCREEN, URINE NEGATIVE (NEGATIVE); PROPOXYPHENE SCREEN, URINE NEGATIVE (NEGATIVE); THC CANNABINOID SCREEN, URINE POSITIVE (NEGATIVE); TRICYCLIC ANTIDEPRESSANT,URINE NEGATIVE (NEGATIVE)
[2020-11-18] MEDS ORDERED: levETIRAcetam INJ 1,000 MG in SODIUM CHLORIDE 0.9% 100ML 100 ML IV STA (21:44)
[2020-11-18 22:31] VITALS: BP 122/75
== END 2020-11-18 22:30 | disposition home or self-care (01) ==
LOC: ED 16:28
DX: R56.9 Unspecified convulsions (principal); I69.354 Hemiplegia and hemiparesis following cerebral infarction affecting left non-dominant side; Z87.891 Personal history of nicotine dependence; I10 Essential (primary) hypertension
CPT/HCPCS: 36415; 70496; 71045; 80053; 80306; 81003; 83690; 84484; 85025; 85610; 93005; 96365; 99284; Q9967; 81001; 87086

== ENCOUNTER 2021-01-13 11:32 | Outpatient (CLI) | payer BC ==
[2021-01-13 12:05] LABS: BASOPHILS % (AUTO) 0.5 %; EOSINOPHILS # (AUTO) 0.1 10^3/uL (0.0-0.7); EOSINOPHILS % (AUTO) 1.8 %; HCT - HEMATOCRIT 43.5 % (42.0-52.0); LYMPHOCYTES # (AUTO) 1.7 10^3/uL (1.5-3.5); LYMPHOCYTES % (AUTO) 31.3 %; MEAN CORPUSCULAR HEMOGLOBIN 30.2 pg (27.0-31.0); MEAN CORPUSCULAR HGB CONC 34.5 g/dL (32.0-36.0); MEAN CORPUSCULAR VOLUME 87.7 fL (80.0-94.0); MEAN PLATELET VOLUME 10.5 fL (7.4-11.4); MONOCYTES # (AUTO) 0.4 10^3/uL (0.0-1.0); NEUTROPHILS # (AUTO) 3.2 10^3/uL (1.5-6.6); NEUTROPHILS % (AUTO) 58.2 %; PLT - PLATELET COUNT 182 10^3/uL (130-450); RED BLOOD COUNT 4.96 10^6/uL (4.70-6.10); WHITE BLOOD COUNT 5.5 x10^3/uL (4.8-10.8)
[2021-01-13 12:14] LABS: ALBUMIN 4.5 g/dL (3.2-5.5); ALBUMIN/GLOBULIN RATIO 1.6 (1.0-2.2); BILIRUBIN,TOTAL 0.7 mg/dL (0.2-1.0); CALCIUM 9.9 mg/dL (8.5-10.3); CREATININE 0.6 mg/dL (0.6-1.2); POTASSIUM 4.3 mmol/L (3.5-5.0); TOTAL PROTEIN 7.4 g/dL (6.7-8.2)
== END 2021-01-13 11:33 | disposition home or self-care (01) ==
LOC: LAB 11:32
PROVIDERS: ATTEND Psychiatry & Neurology Neurology
DX: R56.9 Unspecified convulsions (principal)
CPT/HCPCS: 36415; 80053; 85025

== ENCOUNTER 2021-03-21 08:18 | Outpatient (CLI) | payer BC ==
[2021-03-21 08:47] LABS: BASOPHILS % (AUTO) 0.6 %; EOSINOPHILS # (AUTO) 0.1 10^3/uL (0.0-0.7); EOSINOPHILS % (AUTO) 1.9 %; HCT - HEMATOCRIT 46.6 % (42.0-52.0); HGB - HEMOGLOBIN 15.6 g/dL (14.0-18.0); LYMPHOCYTES # (AUTO) 2.1 10^3/uL (1.5-3.5); LYMPHOCYTES % (AUTO) 38.7 %; MEAN CORPUSCULAR HEMOGLOBIN 29.9 pg (27.0-31.0); MEAN CORPUSCULAR HGB CONC 33.5 g/dL (32.0-36.0); MEAN CORPUSCULAR VOLUME 89.3 fL (80.0-94.0); MEAN PLATELET VOLUME 11.1 fL (7.4-11.4); MONOCYTES # (AUTO) 0.4 10^3/uL (0.0-1.0); MONOCYTES % (AUTO) 8.2 %; NEUTROPHILS # (AUTO) 2.7 10^3/uL (1.5-6.6); NEUTROPHILS % (AUTO) 50.2 %; PLT - PLATELET COUNT 160 10^3/uL (130-450); RED BLOOD COUNT 5.22 10^6/uL (4.70-6.10); RED CELL DISTRIBUTION WIDTH 11.9 % (12.0-15.0); WHITE BLOOD COUNT 5.4 x10^3/uL (4.8-10.8)
[2021-03-21 09:04] LABS: ALBUMIN 4.4 g/dL (3.2-5.5); ALBUMIN/GLOBULIN RATIO 1.5 (1.0-2.2); BILIRUBIN,TOTAL 0.7 mg/dL (0.2-1.0); CALCIUM 9.8 mg/dL (8.5-10.3); CREATININE 0.8 mg/dL (0.6-1.2); POTASSIUM 4.2 mmol/L (3.5-5.0); TOTAL PROTEIN 7.3 g/dL (6.7-8.2)
== END 2021-03-21 08:19 | disposition home or self-care (01) ==
LOC: LAB 08:18
PROVIDERS: ATTEND Psychiatry & Neurology Neurology
DX: R56.9 Unspecified convulsions (principal)
CPT/HCPCS: 36415; 80053; 85025

== ENCOUNTER 2021-04-02 11:49 | Outpatient (CLI) | payer BC | END 2021-04-02 11:50 | disposition critical access hospital (66) | LOC: EMS 11:49 | DX: R25.1 Tremor, unspecified (principal); R51.9 Headache, unspecified | CPT/HCPCS: A0425; A0427 ==

== ENCOUNTER 2021-04-02 12:02 | Emergency (ER) | payer BC ==
[2021-04-02] MEDS ORDERED: SODIUM CHLORIDE 0.9% 1,000 ML IV STA (12:37)
[2021-04-02 12:55] LABS: BASOPHILS % (AUTO) 0.5 %; EOSINOPHILS # (AUTO) 0.1 10^3/uL (0.0-0.7); EOSINOPHILS % (AUTO) 0.9 %; HCT - HEMATOCRIT 43.8 % (42.0-52.0); HGB - HEMOGLOBIN 15.4 g/dL (14.0-18.0); LYMPHOCYTES # (AUTO) 0.8 10^3/uL (1.5-3.5); MEAN CORPUSCULAR HEMOGLOBIN 31.2 pg (27.0-31.0); MEAN CORPUSCULAR HGB CONC 35.2 g/dL (32.0-36.0); MEAN CORPUSCULAR VOLUME 88.8 fL (80.0-94.0); MEAN PLATELET VOLUME 10.9 fL (7.4-11.4); MONOCYTES # (AUTO) 0.5 10^3/uL (0.0-1.0); MONOCYTES % (AUTO) 7.6 %; NEUTROPHILS # (AUTO) 5.1 10^3/uL (1.5-6.6); NEUTROPHILS % (AUTO) 78.8 %; PLT - PLATELET COUNT 144 10^3/uL (130-450); RED BLOOD COUNT 4.93 10^6/uL (4.70-6.10); RED CELL DISTRIBUTION WIDTH 11.8 % (12.0-15.0); WHITE BLOOD COUNT 6.5 x10^3/uL (4.8-10.8)
[2021-04-02 13:04] LABS: ALBUMIN 3.8 g/dL (3.2-5.5); ALBUMIN/GLOBULIN RATIO 1.4 (1.0-2.2); CALCIUM 9.7 mg/dL (8.5-10.3); CREATININE 0.6 mg/dL (0.6-1.2); POTASSIUM 4.5 mmol/L (3.5-5.0); TOTAL PROTEIN 6.6 g/dL (6.7-8.2)
[2021-04-02] MEDS ORDERED: LORazepam 2 MG/ML VIAL IVP STA (13:43)
--- NOTE | 2021-04-02 13:48 | ED Physician Documentation ---
History of Present Illness - Stated complaint Stated Complaint: SEIZURE - Chief complaint Chief Complaint: Neuro - History obtained from History obtained from: Patient - Additonal information Additional information: Patient comes emergency department chief complaint of breakthrough seizure. He had a Hemorrhagic stroke last April and following this, had a seizure in the spring. He had been on Keppra, but in mid January, was changed to divalproex because of of some emotional outbursts he had been having. Patient states that this is the first seizure he has had since the spring. He denies any insomnia, recent illness, excessive stress, dose changes to medicines, or missing doses. Has not had vomiting or diarrhea. The patient states he has been depressed, but not suicidal. He is currently followed by neurology. No other complaints at this time. He states that when the seizure happened this morning he was sitting at the table with a cup of coffee when suddenly his hand began to twitch, smelling the coffee. He then lost consciousness and did not remember anything until waking up in the ambulance. Patient believes he has tonic-clonic seizures but he is not exactly sure. The seizure was estimated to lasted about 2 minutes according to medics. Review of Systems Ten Systems: 10 systems reviewed and negative Constitutional: reports: Reviewed and negative Eyes: reports: Reviewed and negative Ears: reports: Reviewed and negative Nose: reports: Reviewed and negative Throat: reports: Reviewed and negative Cardiac: reports: Reviewed and negative Respiratory: reports: Reviewed and negative GI: reports: Reviewed and negative : reports: Reviewed and negative Skin: reports: Reviewed and negative Musculoskeletal: reports: Reviewed and negative Neurologic: reports: Seizure Psychiatric: reports: Reviewed and negative Endocrine: reports: Reviewed and negative Immunocompromised: reports: Reviewed and negative PD PAST MEDICAL HISTORY - Past Medical History Cardiovascular: Hypertension Neuro: CVA - Past Surgical History Past Surgical History: No - Present Medications Home Medications: Ambulatory Orders Medication Instructions Recorded Confirmed Losartan [Cozaar] 75 mg PO DAILY 05/23/20 12/21/20 Amlodipine Besylate [Norvasc] 1 tab PO DAILY 07/24/20 12/21/20 Carvedilol [Coreg] 1 tab PO BID 07/24/20 12/21/20 Sertraline HCl 100 mg PO DAILY PM 10/26/20 12/21/20 Baclofen 5 mg PO BID 11/18/20 12/21/20 Levetiracetam [Keppra] 500 mg PO BID #60 tablet 11/18/20 12/21/20 - Allergies Allergies/Adverse Reactions: Allergies Allergy/AdvReac Type Severity Reaction Status Date / Time No Known Drug Allergies Allergy Verified 04/02/21 12:11 - Social History Does the pt smoke?: No Smoking Status: Former smoker Does the pt drink ETOH?: Yes Does the pt have substance abuse?: No - Immunizations Immunizations are current?: Yes PD ED PE NORMAL - Vitals Vital signs reviewed: Yes - General General: Alert and oriented X 3, No acute distress, Well developed/nourished - HEENT HEENT: Atraumatic, PERRL, EOMI, Moist mucous membranes - Neck Neck: Supple, no meningeal sign - Cardiac Cardiac: RRR, No murmur, Strong equal pulses - Respiratory Respiratory: No respiratory distress, Clear bilaterally - Abdomen Abdomen: Soft, Non tender, Non distended - Derm Derm: Normal color, Warm and dry, No rash - Extremities Extremities: No deformity, No edema - Neuro Neuro: Alert and oriented X 3 - Psych Psych: Normal mood, Normal affect Results - Vitals Vitals: Vital Signs - 24 hr 04/02/21 04/02/21 12:11 12:15 Temperature 36.5 C 36.5 C Heart Rate 81 81 Respiratory 14 14 Rate Blood Pressure 124/81 H 124/81 H O2 Saturation 96 96 Oxygen O2 Source Room air - Labs Labs: Laboratory Tests 04/02/21 04/02/21 12:45 12:45 WBC 6.5 RBC 4.93 Hgb 15.4 Hct 43.8 MCV 88.8 MCH 31.2 H MCHC 35.2 RDW 11.8 L Plt Count 144 MPV 10.9 Neut # (Auto) 5.1 Lymph # (Auto) 0.8 L [place] # (Auto) 0.5 Eos # (Auto) 0.1 Baso # (Auto) 0.0 Absolute Nucleated RBC 0.00 Nucleated RBC % 0.0 Sodium 139 Potassium 4.5 Chloride 103 Carbon Dioxide 25 Anion Gap 11.0 BUN 12 Creatinine 0.6 Estimated GFR (MDRD) 145 Glucose 132 H Calcium 9.7 Total Bilirubin 1.0 AST 31 ALT 46 Alkaline Phosphatase 34 L Total Protein 6.6 L Albumin 3.8 Globulin 2.8 Albumin/Globulin Ratio 1.4 Lipase 29 PD MEDICAL DECISION MAKING - ED course Complexity details: reviewed results, re-evaluated patient, considered differential, d/w patient ED course: Patient was treated with IV fluids and a small dose of Ativan. Laboratory studies were unremarkable. I discussed with the patient that it is fairly expected for patients with a seizure disorder or condition to have an occasional breakthrough seizure. It has been a number of months since the patient's last seizure and that has been the only other 1 for the patient. At this point in time, I would not change any medications, but I have discussed with the patient that should his seizure pattern become increasingly frequent, he will need to follow-up with his neurologist to discuss whether his medication regimen should be altered in any way. We have discussed home management of symptoms as well as the usual indications for return. Departure - Departure Disposition: 01 Home, Self Care Clinical Impression: Breakthrough seizure Condition: Stable Instructions: ED Seizure Recurrent
[2021-04-02 13:59] VITALS: BP 110/66
== END 2021-04-02 13:57 | disposition home or self-care (01) ==
LOC: EDUNIT# → ED 12:02
DX: R56.9 Unspecified convulsions (principal); Z86.73 Personal history of transient ischemic attack (TIA), and cerebral infarction without residual deficits; I10 Essential (primary) hypertension; Z79.899 Other long term (current) drug therapy; Z87.891 Personal history of nicotine dependence
CPT/HCPCS: 36415; 80053; 83690; 85025; 96374; 99283; J2060

== ENCOUNTER 2021-04-05 08:00 | Outpatient (CLI) | payer BC ==
[2021-04-05 15:28] LABS: VALPROIC ACID (DEPAKOTE) 68.6 ug/mL
== END 2021-04-05 23:59 ==
LOC: LAB 08:00
PROVIDERS: ATTEND Family Medicine
DX: G40.909 Epilepsy, unspecified, not intractable, without status epilepticus (principal)
CPT/HCPCS: 36415; 80164

== ENCOUNTER 2021-05-03 11:55 | Outpatient (CLI) | payer OTHER ==
--- NOTE | 2021-05-03 12:47 | XRAY Report ---
PROCEDURE: Ankle 3 View LT INDICATIONS: ANKLE PAIN,LEFT TECHNIQUE: 3 views of the ankle were acquired. COMPARISON: None. FINDINGS: BONES: No acute, displaced fracture or dislocation. The ankle mortise is maintained on these nonstre ssed views. Ossific densities about the malleoli, compatible with remote traumatic injury. Os trigonu m. SOFT TISSUES: No focal abnormality. IMPRESSION: 1.No acute osseous abnormality. Reviewed by: Dipesh Morris MD on 05/03/2021 12:46 PM [facility] Approved by: Dipesh Morris MD on 05/03/2021 12:46 PM [facility] Station ID: [id number]
== END 2021-05-03 11:56 | disposition home or self-care (01) ==
LOC: DI 11:55
PROVIDERS: ATTEND Family Medicine
DX: M25.572 Pain in left ankle and joints of left foot (principal)

== ENCOUNTER 2021-08-10 20:46 | Outpatient (CLI) | payer OTHER | END 2021-08-10 20:47 | disposition EMS.NT | LOC: EMS 20:46 | DX: R56.9 Unspecified convulsions (principal) ==

== ENCOUNTER 2021-08-10 21:44 | Emergency (ER) | payer BC, OTHER ==
--- NOTE | 2021-08-10 22:58 | CT Report ---
PROCEDURE: HEAD WO INDICATIONS: prolonged seizure; history of CVA TECHNIQUE: Noncontrast 4.5 mm thick angled axial sections acquired from the foramen magnum to the vertex. For r adiation dose reduction, the following was used: automated exposure control, adjustment of mA and/or kV according to patient size. COMPARISON: 07/16/2020. FINDINGS: Image quality: Excellent. CSF spaces: Basal cisterns are patent. No extra-axial fluid collections. Ventricles are stable in size and configuration. Brain: No midline shift. No intracranial masses or hemorrhage. Ross-white matter interface is norm al. Stable chronic appearing postsurgical changes of the right frontal lobe and associated encephalom alacia. Stable faint hyperdensity along the inner calvarial table at the surgical site. Skull and face: Stable postoperative changes from remote right frontal craniotomy. Calvarium and visu alized facial bones are intact, without suspicious lesions. Sinuses: Visualized sinuses and mastoids are clear. IMPRESSION: Stable CT evaluation of the head without acute intracranial abnormalities. Reviewed by: Sebastian Rush MD on 08/10/2021 10:56 PM PDT Approved by: Sebastian Rush MD on 08/10/2021 10:56 PM PDT Station ID: [id number]
[2021-08-10 23:04] LABS: BASOPHILS % (AUTO) 0.4 %; EOSINOPHILS # (AUTO) 0.1 10^3/uL (0.0-0.7); EOSINOPHILS % (AUTO) 1.5 %; HCT - HEMATOCRIT 40.7 % (42.0-52.0); LYMPHOCYTES # (AUTO) 1.8 10^3/uL (1.5-3.5); LYMPHOCYTES % (AUTO) 37.9 %; MEAN CORPUSCULAR HEMOGLOBIN 31.3 pg (27.0-31.0); MEAN CORPUSCULAR HGB CONC 34.4 g/dL (32.0-36.0); MEAN CORPUSCULAR VOLUME 90.8 fL (80.0-94.0); MEAN PLATELET VOLUME 11.3 fL (7.4-11.4); MONOCYTES # (AUTO) 0.5 10^3/uL (0.0-1.0); MONOCYTES % (AUTO) 9.7 %; NEUTROPHILS # (AUTO) 2.4 10^3/uL (1.5-6.6); NEUTROPHILS % (AUTO) 50.1 %; PLT - PLATELET COUNT 120 10^3/uL (130-450); RED BLOOD COUNT 4.48 10^6/uL (4.70-6.10); RED CELL DISTRIBUTION WIDTH 12.8 % (12.0-15.0); WHITE BLOOD COUNT 4.7 x10^3/uL (4.8-10.8)
[2021-08-10 23:17] LABS: ALBUMIN 3.9 g/dL (3.2-5.5); ALBUMIN/GLOBULIN RATIO 1.4 (1.0-2.2); ALKALINE PHOSPHATASE 35 IU/L (42-121); ALT ALANINE AMINOTRANSFERASE 62 IU/L (10-60); AST ASPARTATE AMINOTRANSFERASE 40 IU/L (10-42); BILIRUBIN,TOTAL 0.7 mg/dL (0.2-1.0); BUN - BLOOD UREA NITROGEN 13 mg/dL (6-20); CALCIUM 9.3 mg/dL (8.5-10.3); CARBON DIOXIDE - CO2 29 mmol/L (21-32); CHLORIDE 98 mmol/L (101-111); CREATININE 0.7 mg/dL (0.6-1.2); GFR - MDRD 121 (>89); GLUCOSE 95 mg/dL (70-100); SODIUM 135 mmol/L (135-145); TOTAL PROTEIN 6.6 g/dL (6.7-8.2); VALPROIC ACID (DEPAKOTE) 68.7 ug/mL
[2021-08-10] MEDS ORDERED: SODIUM CHLORIDE 0.9% 1,000 ML IV STA (23:37)
[2021-08-10] MEDS ORDERED: levETIRAcetam INJ 1,000 MG in SODIUM CHLORIDE 0.9% 100ML 100 ML IV STA (23:51)
--- NOTE | 2021-08-11 00:40 | ED Physician Documentation ---
PD HPI SEIZURE - Stated complaint Stated Complaint: SEIZURE - Chief complaint Chief Complaint: Neuro - History obtained from History obtained from: Patient, Family (Patient's ) - Additional information Additional information: Patient with a history of a CVA and seizure disorder presenting for evaluation after a seizure that occurred 1 hour prior to arrival. Patient was sitting in a chair when his family noted that he was having a seizure. They were able to lower him down to the ground and turned him to his left side. The seizure was lasting longer than his previous episodes so his activated EMS.The seizure lasted approximately 5 minutes and stopped without intervention. He did have a postictal period. His last seizure was July 27. He last had a dose adjustment of his Depakote 1 month ago.He has been compliant with his Depakote. He reports working outside more today and thinks he may have overdone it but has otherwise been feeling well. He denies fever, chest pain, difficulty breathing, abdominal pain, vomiting, diarrhea, dysuria. Review of Systems Constitutional: denies: Fever Nose: denies: Congestion Cardiac: denies: Chest pain / pressure Respiratory: denies: Dyspnea, Cough GI: denies: Vomiting : denies: Dysuria Skin: denies: Rash Neurologic: reports: Seizure. denies: Head injury PD PAST MEDICAL HISTORY - Past Medical History Cardiovascular: Hypertension Neuro: CVA - Past Surgical History Past Surgical History: No - Present Medications Home Medications: Ambulatory Orders Medication Instructions Recorded Confirmed Losartan [Cozaar] 75 mg PO DAILY 05/23/20 12/21/20 Amlodipine Besylate [Norvasc] 1 tab PO DAILY 07/24/20 12/21/20 Carvedilol [Coreg] 1 tab PO BID 07/24/20 12/21/20 Sertraline HCl 100 mg PO DAILY PM 10/26/20 12/21/20 Baclofen 5 mg PO BID 11/18/20 12/21/20 Levetiracetam [Keppra] 500 mg PO BID #60 tablet 11/18/20 12/21/20 Levetiracetam [Keppra] 750 mg PO BID #60 tablet 08/11/21 - Allergies Allergies/Adverse Reactions: Allergies Allergy/AdvReac Type Severity Reaction Status Date / Time No Known Drug Allergies Allergy Verified 08/10/21 21:52 - Social History Does the pt smoke?: No Smoking Status: Never smoker Does the pt drink ETOH?: Yes Does the pt have substance abuse?: No - Immunizations Immunizations are current?: Yes - POLST Patient has POLST: No PD ED PE NORMAL - General General: Alert and oriented X 3, No acute distress, Well developed/nourished - HEENT HEENT: Atraumatic, Moist mucous membranes, Pharynx benign - Neck Neck: Supple, no meningeal sign - Cardiac Cardiac: RRR, No murmur, Strong equal pulses - Respiratory Respiratory: No respiratory distress, Clear bilaterally - Abdomen Abdomen: Normal bowel sounds, Soft, Non tender, Non distended - Derm Derm: Normal color, Warm and dry - Extremities Extremities: No edema, Other (Intact distal pulses) - Neuro Neuro: Alert and oriented X 3, Normal speech, Other. No: No motor deficit (Left arm and leg weakness from previous stroke,No new weakness per patient and ), No sensory deficit (Decree sensation to left arm and leg, chronic from previous stroke) Eye Opening: Spontaneous Motor: Obeys Commands Verbal: Oriented GCS Score: 15 - Psych Psych: Normal mood, Normal affect Results - Vitals Vitals: Vital Signs - 24 hr 08/10/21 08/11/21 08/11/21 21:52 00:03 00:50 Temperature 36.5 C Heart Rate 66 54 L 56 L Respiratory 18 13 16 Rate Blood Pressure 133/88 H 119/74 138/76 H O2 Saturation 100 99 99 Oxygen O2 Source Room air - EKG (time done) 2235 Rate: Rate (enter#) (59) Rhythm: Sinus bradycardia [place]: Normal Ischemia: No: ST elevation c/w ischemia - Labs Labs: Laboratory Tests 08/10/21 08/10/21 22:56 22:56 WBC 4.7 L RBC 4.48 L Hgb 14.0 Hct 40.7 L MCV 90.8 MCH 31.3 H MCHC 34.4 RDW 12.8 Plt Count 120 L MPV 11.3 Neut # (Auto) 2.4 Lymph # (Auto) 1.8 Rains # (Auto) 0.5 Eos # (Auto) 0.1 Baso # (Auto) 0.0 Absolute Nucleated RBC 0.00 Nucleated RBC % 0.0 Sodium 135 Potassium 4.0 Chloride 98 L Carbon Dioxide 29 Anion Gap 8.0 BUN 13 Creatinine 0.7 Estimated GFR (MDRD) 121 Glucose 95 Calcium 9.3 Total Bilirubin 0.7 AST 40 ALT 62 H Alkaline Phosphatase 35 L Total Protein 6.6 L Albumin 3.9 Globulin 2.7 Albumin/Globulin Ratio 1.4 Last Dose Date UNKNOWN Last Dose Time UNKNOWN Valproic Acid 68.7 PD MEDICAL DECISION MAKING - ED course Complexity details: reviewed results, re-evaluated patient, d/w patient, d/w family ED course: Patient with a known seizure disorder evaluated after a seizure episode. He has returned to his neurologic baseline with residual left-sided weakness. A CT head was obtained as patient seizure lasted longer than his previous episodes and did not show any acute abnormalities. Labs also reviewed. EKG in a sinus rhythm. The patient denies symptoms to suggest sepsis, ACS, intra-abdominal pathology. Depakote level is therapeutic. Neurology recommends initiating Keppra.Patient and his are aware of return precautions. 2347 - Discussed with the patient's neurologist, Dr. Dobson. She recommends giving the patient 1 g of IV Keppra tonight and then having him start on Keppra 750 mg twice daily. I did discuss this with the patient and his as he has previously had some irritability with Keppra. They are agreeable to giving the medication another try. Departure - Departure Disposition: 01 Home, Self Care Clinical Impression: Breakthrough seizure Condition: Stable Instructions: ED Seizure Recurrent Prescriptions: Levetiracetam [Keppra] 750 mg PO BID #60 tablet Comments: You have been seen after a breakthrough seizure. Your head CT did not show any new abnormalities. I talked to your neurologist, Dr. Dobson who recommended that we start you back on Keppra in addition to your Depakote. You will take the Keppra 750 mg twice a day. Please reach out to Dr. Dobson's office tomorrow for a follow-up appointment. Please return to the emergency department with any further seizures or any other concerning symptoms. The Keppra prescription was sent to the [facility] pharmacy in [place]. Discharge Date/Time: 08/11/21 00:53
[2021-08-11 00:53] VITALS: BP 138/76
== END 2021-08-11 00:53 | disposition home or self-care (01) ==
LOC: ED 21:44
DX: G40.909 Epilepsy, unspecified, not intractable, without status epilepticus (principal); I10 Essential (primary) hypertension
CPT/HCPCS: 36415; 80053; 80164; 85025; 93005; 96374; 99284

== ENCOUNTER 2021-09-26 15:41 | Outpatient (CLI) | payer OTHER ==
[2021-09-26 17:45] LABS: BASOPHILS % (AUTO) 0.3 %; EOSINOPHILS % (AUTO) 0.4 %; HCT - HEMATOCRIT 43.9 % (42.0-52.0); HGB - HEMOGLOBIN 14.9 g/dL (14.0-18.0); LYMPHOCYTES # (AUTO) 2.1 10^3/uL (1.5-3.5); LYMPHOCYTES % (AUTO) 30.5 %; MEAN CORPUSCULAR HEMOGLOBIN 31.5 pg (27.0-31.0); MEAN CORPUSCULAR HGB CONC 33.9 g/dL (32.0-36.0); MEAN CORPUSCULAR VOLUME 92.8 fL (80.0-94.0); MEAN PLATELET VOLUME 11.6 fL (7.4-11.4); MONOCYTES # (AUTO) 0.4 10^3/uL (0.0-1.0); MONOCYTES % (AUTO) 6.3 %; NEUTROPHILS # (AUTO) 4.4 10^3/uL (1.5-6.6); NEUTROPHILS % (AUTO) 62.1 %; PLT - PLATELET COUNT 136 10^3/uL (130-450); RED BLOOD COUNT 4.73 10^6/uL (4.70-6.10); RED CELL DISTRIBUTION WIDTH 12.6 % (12.0-15.0)
[2021-09-26 18:10] LABS: ALBUMIN 3.8 g/dL (3.2-5.5); ALBUMIN/GLOBULIN RATIO 1.2 (1.0-2.2); ALKALINE PHOSPHATASE 31 IU/L (42-121); ALT ALANINE AMINOTRANSFERASE 61 IU/L (10-60); AST ASPARTATE AMINOTRANSFERASE 50 IU/L (10-42); BILIRUBIN,TOTAL 0.7 mg/dL (0.2-1.0); BUN - BLOOD UREA NITROGEN 15 mg/dL (6-20); CALCIUM 9.7 mg/dL (8.5-10.3); CARBON DIOXIDE - CO2 30 mmol/L (21-32); CHLORIDE 100 mmol/L (101-111); CHOL/HDL RATIO 2.8 (<5.0); CHOLESTEROL 182 mg/dL; CREATININE 0.7 mg/dL (0.6-1.2); GFR - MDRD 121 (>89); GLUCOSE 97 mg/dL (70-100); HDL CHOLESTEROL 64 mg/dL; LDL CHOLESTEROL,CALCULATED 105 mg/dL; LDL/HDL RATIO 1.6 (<3.6); POTASSIUM 4.1 mmol/L (3.5-5.0); SODIUM 139 mmol/L (135-145); TOTAL PROTEIN 6.9 g/dL (6.7-8.2); TRIGLYCERIDES 63 mg/dL; VLDL CHOLESTEROL 13 mg/dL
== END 2021-09-26 15:42 | disposition home or self-care (01) ==
LOC: LAB.N 15:41
PROVIDERS: ATTEND Family Medicine
DX: I10 Essential (primary) hypertension (principal)
CPT/HCPCS: 36415; 80053; 80061; 83721; 85025

== ENCOUNTER 2021-10-23 14:44 | Outpatient (CLI) | payer OTHER ==
[2021-10-23 14:59] LABS: BASOPHILS % (AUTO) 0.4 %; EOSINOPHILS % (AUTO) 0.8 %; HCT - HEMATOCRIT 42.5 % (42.0-52.0); HGB - HEMOGLOBIN 14.6 g/dL (14.0-18.0); LYMPHOCYTES # (AUTO) 2.2 10^3/uL (1.5-3.5); LYMPHOCYTES % (AUTO) 46.6 %; MEAN CORPUSCULAR HEMOGLOBIN 32.3 pg (27.0-31.0); MEAN CORPUSCULAR HGB CONC 34.4 g/dL (32.0-36.0); MEAN PLATELET VOLUME 11.1 fL (7.4-11.4); MONOCYTES # (AUTO) 0.4 10^3/uL (0.0-1.0); MONOCYTES % (AUTO) 8.4 %; NEUTROPHILS # (AUTO) 2.1 10^3/uL (1.5-6.6); NEUTROPHILS % (AUTO) 43.6 %; PLT - PLATELET COUNT 128 10^3/uL (130-450); RED BLOOD COUNT 4.52 10^6/uL (4.70-6.10); RED CELL DISTRIBUTION WIDTH 12.7 % (12.0-15.0); WHITE BLOOD COUNT 4.7 x10^3/uL (4.8-10.8)
[2021-10-23 15:12] LABS: ALBUMIN/GLOBULIN RATIO 1.3 (1.0-2.2); ALKALINE PHOSPHATASE 34 IU/L (42-121); ALT ALANINE AMINOTRANSFERASE 52 IU/L (10-60); AST ASPARTATE AMINOTRANSFERASE 41 IU/L (10-42); BILIRUBIN,TOTAL 0.6 mg/dL (0.2-1.0); BUN - BLOOD UREA NITROGEN 13 mg/dL (6-20); CALCIUM 9.8 mg/dL (8.5-10.3); CARBON DIOXIDE - CO2 28 mmol/L (21-32); CHLORIDE 99 mmol/L (101-111); CREATININE 0.7 mg/dL (0.6-1.2); GFR - MDRD 121 (>89); GLUCOSE 95 mg/dL (70-100); POTASSIUM 4.5 mmol/L (3.5-5.0); SODIUM 137 mmol/L (135-145)
== END 2021-10-23 14:45 | disposition home or self-care (01) ==
LOC: LAB 14:44
PROVIDERS: ATTEND Psychiatry & Neurology Neurology
DX: G40.409 Other generalized epilepsy and epileptic syndromes, not intractable, without status epilepticus (principal)
CPT/HCPCS: 36415; 80053; 80164; 80175; 85025

== ENCOUNTER 2021-11-15 11:32 | Outpatient (CLI) | payer OTHER ==
[2021-11-15 11:49] LABS: BASOPHILS % (AUTO) 1.1 %; EOSINOPHILS % (AUTO) 0.8 %; HCT - HEMATOCRIT 42.2 % (42.0-52.0); HGB - HEMOGLOBIN 14.9 g/dL (14.0-18.0); LYMPHOCYTES # (AUTO) 1.2 10^3/uL (1.5-3.5); MEAN CORPUSCULAR HEMOGLOBIN 32.5 pg (27.0-31.0); MEAN CORPUSCULAR HGB CONC 35.3 g/dL (32.0-36.0); MEAN CORPUSCULAR VOLUME 91.9 fL (80.0-94.0); MONOCYTES # (AUTO) 0.5 10^3/uL (0.0-1.0); MONOCYTES % (AUTO) 14.3 %; NEUTROPHILS # (AUTO) 1.8 10^3/uL (1.5-6.6); NEUTROPHILS % (AUTO) 49.2 %; RED BLOOD COUNT 4.59 10^6/uL (4.70-6.10); RED CELL DISTRIBUTION WIDTH 12.2 % (12.0-15.0); WHITE BLOOD COUNT 3.7 x10^3/uL (4.8-10.8)
[2021-11-15 11:54] LABS: PLT - PLATELET COUNT 123 10^3/uL (130-450)
[2021-11-15 12:06] LABS: ALBUMIN 3.5 g/dL (3.2-5.5); ALBUMIN/GLOBULIN RATIO 1.2 (1.0-2.2); ALKALINE PHOSPHATASE 39 IU/L (42-121); ALT ALANINE AMINOTRANSFERASE 102 IU/L (10-60); AST ASPARTATE AMINOTRANSFERASE 110 IU/L (10-42); BILIRUBIN,TOTAL 0.6 mg/dL (0.2-1.0); BUN - BLOOD UREA NITROGEN 14 mg/dL (6-20); CALCIUM 9.4 mg/dL (8.5-10.3); CARBON DIOXIDE - CO2 29 mmol/L (21-32); CHLORIDE 95 mmol/L (101-111); CREATININE 0.7 mg/dL (0.6-1.2); GFR - MDRD 121 (>89); GLUCOSE 93 mg/dL (70-100); POTASSIUM 4.3 mmol/L (3.5-5.0); SODIUM 132 mmol/L (135-145); TOTAL PROTEIN 6.5 g/dL (6.7-8.2); VALPROIC ACID (DEPAKOTE) 100.2 ug/mL
== END 2021-11-15 11:33 | disposition home or self-care (01) ==
LOC: LAB 11:32
PROVIDERS: ATTEND Psychiatry & Neurology Neurology
DX: G40.409 Other generalized epilepsy and epileptic syndromes, not intractable, without status epilepticus (principal)
CPT/HCPCS: 36415; 80053; 80164; 80175; 85025

== ENCOUNTER 2021-12-28 16:00 | Outpatient (CLI) | payer OTHER ==
[2021-12-28 16:15] LABS: BASOPHILS % (AUTO) 0.4 %; EOSINOPHILS # (AUTO) 0.1 10^3/uL (0.0-0.7); EOSINOPHILS % (AUTO) 1.2 %; HCT - HEMATOCRIT 42.1 % (42.0-52.0); HGB - HEMOGLOBIN 14.7 g/dL (14.0-18.0); LYMPHOCYTES # (AUTO) 2.7 10^3/uL (1.5-3.5); LYMPHOCYTES % (AUTO) 47.3 %; MEAN CORPUSCULAR HEMOGLOBIN 32.9 pg (27.0-31.0); MEAN CORPUSCULAR HGB CONC 34.9 g/dL (32.0-36.0); MEAN CORPUSCULAR VOLUME 94.2 fL (80.0-94.0); MEAN PLATELET VOLUME 10.8 fL (7.4-11.4); MONOCYTES # (AUTO) 0.6 10^3/uL (0.0-1.0); MONOCYTES % (AUTO) 10.1 %; NEUTROPHILS # (AUTO) 2.3 10^3/uL (1.5-6.6); NEUTROPHILS % (AUTO) 40.6 %; PLT - PLATELET COUNT 165 10^3/uL (130-450); RED BLOOD COUNT 4.47 10^6/uL (4.70-6.10); RED CELL DISTRIBUTION WIDTH 12.8 % (12.0-15.0); WHITE BLOOD COUNT 5.7 x10^3/uL (4.8-10.8)
[2021-12-28 16:31] LABS: ALBUMIN 4.1 g/dL (3.2-5.5); ALBUMIN/GLOBULIN RATIO 1.3 (1.0-2.2); BILIRUBIN,TOTAL 0.5 mg/dL (0.2-1.0); CALCIUM 10.4 mg/dL (8.5-10.3); CREATININE 0.6 mg/dL (0.6-1.2); POTASSIUM 4.8 mmol/L (3.5-5.0); TOTAL PROTEIN 7.3 g/dL (6.7-8.2)
== END 2021-12-28 16:01 | disposition home or self-care (01) ==
LOC: LAB 16:00
PROVIDERS: ATTEND Family Medicine
DX: R74.01 Elevation of levels of liver transaminase levels (principal); N40.1 Benign prostatic hyperplasia with lower urinary tract symptoms; N13.8 Other obstructive and reflux uropathy
CPT/HCPCS: 36415; 80053; 84153; 85025

== ENCOUNTER 2022-01-19 14:02 | Outpatient (CLI) | payer OTHER ==
[2022-01-19 14:16] LABS: BASOPHILS % (AUTO) 0.2 %; EOSINOPHILS % (AUTO) 0.7 %; HCT - HEMATOCRIT 42.8 % (42.0-52.0); HGB - HEMOGLOBIN 14.9 g/dL (14.0-18.0); LYMPHOCYTES # (AUTO) 2.6 10^3/uL (1.5-3.5); LYMPHOCYTES % (AUTO) 46.8 %; MEAN CORPUSCULAR HEMOGLOBIN 32.7 pg (27.0-31.0); MEAN CORPUSCULAR HGB CONC 34.8 g/dL (32.0-36.0); MEAN CORPUSCULAR VOLUME 93.9 fL (80.0-94.0); MEAN PLATELET VOLUME 10.8 fL (7.4-11.4); MONOCYTES # (AUTO) 0.6 10^3/uL (0.0-1.0); MONOCYTES % (AUTO) 10.5 %; NEUTROPHILS # (AUTO) 2.3 10^3/uL (1.5-6.6); NEUTROPHILS % (AUTO) 41.4 %; PLT - PLATELET COUNT 138 10^3/uL (130-450); RED BLOOD COUNT 4.56 10^6/uL (4.70-6.10); RED CELL DISTRIBUTION WIDTH 12.7 % (12.0-15.0); WHITE BLOOD COUNT 5.5 x10^3/uL (4.8-10.8)
[2022-01-19 14:29] LABS: ALBUMIN 4.3 g/dL (3.2-5.5); ALBUMIN/GLOBULIN RATIO 1.4 (1.0-2.2); ALKALINE PHOSPHATASE 35 IU/L (42-121); ALT ALANINE AMINOTRANSFERASE 48 IU/L (10-60); AST ASPARTATE AMINOTRANSFERASE 49 IU/L (10-42); BILIRUBIN,TOTAL 0.8 mg/dL (0.2-1.0); BUN - BLOOD UREA NITROGEN 13 mg/dL (6-20); CALCIUM 10.2 mg/dL (8.5-10.3); CARBON DIOXIDE - CO2 30 mmol/L (21-32); CHLORIDE 99 mmol/L (101-111); CREATININE 0.7 mg/dL (0.6-1.2); GFR - MDRD 121 (>89); GLUCOSE 69 mg/dL (70-100); POTASSIUM 4.5 mmol/L (3.5-5.0); SODIUM 137 mmol/L (135-145); TOTAL PROTEIN 7.3 g/dL (6.7-8.2); VALPROIC ACID (DEPAKOTE) 97.2 ug/mL
== END 2022-01-19 14:03 | disposition home or self-care (01) ==
LOC: LAB 14:02
PROVIDERS: ATTEND Psychiatry & Neurology Neurology
DX: G40.409 Other generalized epilepsy and epileptic syndromes, not intractable, without status epilepticus (principal)
CPT/HCPCS: 36415; 80053; 80164; 80175; 85025

== ENCOUNTER 2022-02-06 16:13 | Outpatient (CLI) | payer OTHER ==
[2022-02-06 16:40] LABS: BASOPHILS % (AUTO) 0.4 %; EOSINOPHILS # (AUTO) 0.1 10^3/uL (0.0-0.7); EOSINOPHILS % (AUTO) 0.9 %; HCT - HEMATOCRIT 42.2 % (42.0-52.0); HGB - HEMOGLOBIN 14.9 g/dL (14.0-18.0); LYMPHOCYTES # (AUTO) 2.7 10^3/uL (1.5-3.5); LYMPHOCYTES % (AUTO) 49.4 %; MEAN CORPUSCULAR HGB CONC 35.3 g/dL (32.0-36.0); MEAN CORPUSCULAR VOLUME 93.4 fL (80.0-94.0); MONOCYTES # (AUTO) 0.5 10^3/uL (0.0-1.0); MONOCYTES % (AUTO) 8.7 %; NEUTROPHILS # (AUTO) 2.2 10^3/uL (1.5-6.6); NEUTROPHILS % (AUTO) 40.2 %; PLT - PLATELET COUNT 141 10^3/uL (130-450); RED BLOOD COUNT 4.52 10^6/uL (4.70-6.10); RED CELL DISTRIBUTION WIDTH 12.6 % (12.0-15.0); WHITE BLOOD COUNT 5.4 x10^3/uL (4.8-10.8)
[2022-02-06 16:45] LABS: ALBUMIN 3.9 g/dL (3.2-5.5); ALBUMIN/GLOBULIN RATIO 1.2 (1.0-2.2); ALKALINE PHOSPHATASE 38 IU/L (42-121); ALT ALANINE AMINOTRANSFERASE 50 IU/L (10-60); AST ASPARTATE AMINOTRANSFERASE 50 IU/L (10-42); BILIRUBIN,TOTAL 0.6 mg/dL (0.2-1.0); BUN - BLOOD UREA NITROGEN 12 mg/dL (6-20); CALCIUM 9.8 mg/dL (8.5-10.3); CARBON DIOXIDE - CO2 27 mmol/L (21-32); CHLORIDE 103 mmol/L (101-111); CREATININE 0.7 mg/dL (0.6-1.2); GFR - MDRD 121 (>89); GLUCOSE 108 mg/dL (70-100); POTASSIUM 4.1 mmol/L (3.5-5.0); SODIUM 138 mmol/L (135-145); TOTAL PROTEIN 7.1 g/dL (6.7-8.2); VALPROIC ACID (DEPAKOTE) 120.2 ug/mL
== END 2022-02-06 16:14 | disposition home or self-care (01) ==
LOC: LAB 16:13
PROVIDERS: ATTEND Psychiatry & Neurology Neurology
DX: G40.409 Other generalized epilepsy and epileptic syndromes, not intractable, without status epilepticus (principal)
CPT/HCPCS: 36415; 80053; 80164; 80175; 85025

== ENCOUNTER 2022-03-08 14:33 | Outpatient (CLI) | payer OTHER ==
[2022-03-08 14:45] LABS: BASOPHILS % (AUTO) 0.7 %; EOSINOPHILS # (AUTO) 0.1 10^3/uL (0.0-0.7); EOSINOPHILS % (AUTO) 1.8 %; HCT - HEMATOCRIT 42.3 % (42.0-52.0); HGB - HEMOGLOBIN 14.3 g/dL (14.0-18.0); LYMPHOCYTES # (AUTO) 2.7 10^3/uL (1.5-3.5); LYMPHOCYTES % (AUTO) 47.3 %; MEAN CORPUSCULAR HEMOGLOBIN 32.2 pg (27.0-31.0); MEAN CORPUSCULAR HGB CONC 33.8 g/dL (32.0-36.0); MEAN CORPUSCULAR VOLUME 95.3 fL (80.0-94.0); MEAN PLATELET VOLUME 11.2 fL (7.4-11.4); MONOCYTES # (AUTO) 0.5 10^3/uL (0.0-1.0); MONOCYTES % (AUTO) 8.2 %; NEUTROPHILS # (AUTO) 2.4 10^3/uL (1.5-6.6); NEUTROPHILS % (AUTO) 41.6 %; PLT - PLATELET COUNT 137 10^3/uL (130-450); RED BLOOD COUNT 4.44 10^6/uL (4.70-6.10); RED CELL DISTRIBUTION WIDTH 12.4 % (12.0-15.0); WHITE BLOOD COUNT 5.6 x10^3/uL (4.8-10.8)
[2022-03-08 15:06] LABS: ALBUMIN 3.9 g/dL (3.2-5.5); ALBUMIN/GLOBULIN RATIO 1.4 (1.0-2.2); ALKALINE PHOSPHATASE 33 IU/L (42-121); ALT ALANINE AMINOTRANSFERASE 47 IU/L (10-60); AST ASPARTATE AMINOTRANSFERASE 45 IU/L (10-42); BILIRUBIN,TOTAL 0.6 mg/dL (0.2-1.0); BUN - BLOOD UREA NITROGEN 13 mg/dL (6-20); CALCIUM 9.6 mg/dL (8.5-10.3); CARBON DIOXIDE - CO2 29 mmol/L (21-32); CHLORIDE 99 mmol/L (101-111); CREATININE 0.7 mg/dL (0.6-1.2); GFR - MDRD 121 (>89); GLUCOSE 101 mg/dL (70-100); POTASSIUM 4.2 mmol/L (3.5-5.0); SODIUM 137 mmol/L (135-145); TOTAL PROTEIN 6.6 g/dL (6.7-8.2); VALPROIC ACID (DEPAKOTE) 122.9 ug/mL
== END 2022-03-08 14:34 | disposition home or self-care (01) ==
LOC: LAB 14:33
PROVIDERS: ATTEND Psychiatry & Neurology Neurology
DX: G40.409 Other generalized epilepsy and epileptic syndromes, not intractable, without status epilepticus (principal)
CPT/HCPCS: 36415; 80053; 80164; 80175; 85025

== ENCOUNTER 2022-05-24 12:51 | Outpatient (CLI) | payer OTHER ==
[2022-05-24 13:07] LABS: BASOPHILS % (AUTO) 0.5 %; EOSINOPHILS # (AUTO) 0.1 10^3/uL (0.0-0.7); EOSINOPHILS % (AUTO) 1.2 %; HCT - HEMATOCRIT 41.7 % (42.0-52.0); HGB - HEMOGLOBIN 13.8 g/dL (14.0-18.0); LYMPHOCYTES # (AUTO) 1.8 10^3/uL (1.5-3.5); LYMPHOCYTES % (AUTO) 42.2 %; MEAN CORPUSCULAR HEMOGLOBIN 31.9 pg (27.0-31.0); MEAN CORPUSCULAR HGB CONC 33.1 g/dL (32.0-36.0); MEAN CORPUSCULAR VOLUME 96.3 fL (80.0-94.0); MEAN PLATELET VOLUME 11.4 fL (7.4-11.4); MONOCYTES # (AUTO) 0.3 10^3/uL (0.0-1.0); MONOCYTES % (AUTO) 7.9 %; PLT - PLATELET COUNT 150 10^3/uL (130-450); RED BLOOD COUNT 4.33 10^6/uL (4.70-6.10); WHITE BLOOD COUNT 4.2 x10^3/uL (4.8-10.8)
[2022-05-24 13:21] LABS: ALBUMIN 3.7 g/dL (3.2-5.5); ALBUMIN/GLOBULIN RATIO 1.2 (1.0-2.2); ALKALINE PHOSPHATASE 32 IU/L (42-121); ALT ALANINE AMINOTRANSFERASE 26 IU/L (10-60); AST ASPARTATE AMINOTRANSFERASE 30 IU/L (10-42); BILIRUBIN,TOTAL 0.5 mg/dL (0.2-1.0); BUN - BLOOD UREA NITROGEN 9 mg/dL (6-20); CALCIUM 9.5 mg/dL (8.5-10.3); CARBON DIOXIDE - CO2 29 mmol/L (21-32); CHLORIDE 101 mmol/L (101-111); CREATININE 0.6 mg/dL (0.6-1.2); GFR - MDRD 144 (>89); GLUCOSE 96 mg/dL (70-100); POTASSIUM 4.3 mmol/L (3.5-5.0); SODIUM 139 mmol/L (135-145); TOTAL PROTEIN 6.7 g/dL (6.7-8.2); VALPROIC ACID (DEPAKOTE) 90.1 ug/mL
== END 2022-05-24 12:52 | disposition home or self-care (01) ==
LOC: LAB 12:51
PROVIDERS: ATTEND Psychiatry & Neurology Neurology
DX: G40.409 Other generalized epilepsy and epileptic syndromes, not intractable, without status epilepticus (principal)
CPT/HCPCS: 36415; 80053; 80164; 80175; 85025

== ENCOUNTER 2022-08-07 10:30 | Outpatient (CLI) | payer OTHER | END 2022-08-07 10:31 | disposition home or self-care (01) | LOC: LAB 10:30 | PROVIDERS: ATTEND Nurse Practitioner Family | DX: N40.1 Benign prostatic hyperplasia with lower urinary tract symptoms (principal); Z80.42 Family history of malignant neoplasm of prostate | CPT/HCPCS: 36415; 84153 ==

== ENCOUNTER 2022-08-17 13:03 | Outpatient (CLI) | payer OTHER ==
[2022-08-17 13:15] LABS: BASOPHILS % (AUTO) 0.4 %; EOSINOPHILS # (AUTO) 0.1 10^3/uL (0.0-0.7); EOSINOPHILS % (AUTO) 1.2 %; HCT - HEMATOCRIT 42.5 % (42.0-52.0); HGB - HEMOGLOBIN 14.3 g/dL (14.0-18.0); LYMPHOCYTES # (AUTO) 2.1 10^3/uL (1.5-3.5); LYMPHOCYTES % (AUTO) 41.2 %; MEAN CORPUSCULAR HEMOGLOBIN 31.4 pg (27.0-31.0); MEAN CORPUSCULAR HGB CONC 33.6 g/dL (32.0-36.0); MEAN CORPUSCULAR VOLUME 93.2 fL (80.0-94.0); MEAN PLATELET VOLUME 11.2 fL (7.4-11.4); MONOCYTES # (AUTO) 0.4 10^3/uL (0.0-1.0); MONOCYTES % (AUTO) 7.3 %; NEUTROPHILS # (AUTO) 2.5 10^3/uL (1.5-6.6); NEUTROPHILS % (AUTO) 49.7 %; PLT - PLATELET COUNT 142 10^3/uL (130-450); RED BLOOD COUNT 4.56 10^6/uL (4.70-6.10); RED CELL DISTRIBUTION WIDTH 11.9 % (12.0-15.0); WHITE BLOOD COUNT 5.1 x10^3/uL (4.8-10.8)
[2022-08-17 13:41] LABS: ALBUMIN 4.1 g/dL (3.2-5.5); ALBUMIN/GLOBULIN RATIO 1.4 (1.0-2.2); ALKALINE PHOSPHATASE 34 IU/L (42-121); ALT ALANINE AMINOTRANSFERASE 22 IU/L (10-60); AST ASPARTATE AMINOTRANSFERASE 21 IU/L (10-42); BILIRUBIN,TOTAL 0.4 mg/dL (0.2-1.0); BUN - BLOOD UREA NITROGEN 11 mg/dL (6-20); CALCIUM 9.4 mg/dL (8.5-10.3); CARBON DIOXIDE - CO2 27 mmol/L (21-32); CHLORIDE 101 mmol/L (101-111); CREATININE 0.6 mg/dL (0.6-1.2); GFR - MDRD 144 (>89); GLUCOSE 103 mg/dL (70-100); POTASSIUM 4.2 mmol/L (3.5-5.0); SODIUM 137 mmol/L (135-145); TOTAL PROTEIN 7.1 g/dL (6.7-8.2); VALPROIC ACID (DEPAKOTE) 65.8 ug/mL
== END 2022-08-17 13:04 | disposition home or self-care (01) ==
LOC: LAB 13:03
PROVIDERS: ATTEND Psychiatry & Neurology Neurology
DX: G40.909 Epilepsy, unspecified, not intractable, without status epilepticus (principal)
CPT/HCPCS: 36415; 80053; 80164; 80175; 85025

== ENCOUNTER 2022-09-26 07:55 | Outpatient (CLI) | payer OTHER ==
[2022-09-26 08:50] LABS: CHOL/HDL RATIO 3.1 (<5.0); CHOLESTEROL 185 mg/dL; HDL CHOLESTEROL 60 mg/dL; LDL CHOLESTEROL,CALCULATED 109 mg/dL; LDL/HDL RATIO 1.8 (<3.6); TRIGLYCERIDES 81 mg/dL; VLDL CHOLESTEROL 16 mg/dL
[2022-09-26 08:58] LABS: THYROID STIMULATING HORMONE 2.92 uIU/mL (0.34-5.60)
== END 2022-09-26 07:56 | disposition home or self-care (01) ==
LOC: LAB 07:55
PROVIDERS: ATTEND Nurse Practitioner Family
DX: Z00.00 Encounter for general adult medical examination without abnormal findings (principal)
CPT/HCPCS: 36415; 80061; 83721; 84443

== ENCOUNTER 2022-10-16 14:35 | Outpatient (CLI) | payer OTHER ==
[2022-10-16 14:47] LABS: BASOPHILS % (AUTO) 0.3 %; EOSINOPHILS % (AUTO) 0.6 %; HCT - HEMATOCRIT 43.5 % (42.0-52.0); HGB - HEMOGLOBIN 15.1 g/dL (14.0-18.0); LYMPHOCYTES # (AUTO) 2.2 10^3/uL (1.5-3.5); LYMPHOCYTES % (AUTO) 35.1 %; MEAN CORPUSCULAR HEMOGLOBIN 30.9 pg (27.0-31.0); MEAN CORPUSCULAR HGB CONC 34.7 g/dL (32.0-36.0); MEAN PLATELET VOLUME 10.6 fL (7.4-11.4); MONOCYTES # (AUTO) 0.4 10^3/uL (0.0-1.0); MONOCYTES % (AUTO) 5.6 %; NEUTROPHILS # (AUTO) 3.7 10^3/uL (1.5-6.6); NEUTROPHILS % (AUTO) 58.2 %; PLT - PLATELET COUNT 189 10^3/uL (130-450); RED BLOOD COUNT 4.89 10^6/uL (4.70-6.10); RED CELL DISTRIBUTION WIDTH 11.5 % (12.0-15.0); WHITE BLOOD COUNT 6.3 x10^3/uL (4.8-10.8)
[2022-10-16 20:34] LABS: ALBUMIN 4.5 g/dL (3.2-5.5); ALBUMIN/GLOBULIN RATIO 1.5 (1.0-2.2); ALKALINE PHOSPHATASE 38 IU/L (42-121); ALT ALANINE AMINOTRANSFERASE 24 IU/L (10-60); AST ASPARTATE AMINOTRANSFERASE 20 IU/L (10-42); BILIRUBIN,TOTAL 0.7 mg/dL (0.2-1.0); BUN - BLOOD UREA NITROGEN 14 mg/dL (6-20); CALCIUM 9.5 mg/dL (8.5-10.3); CARBON DIOXIDE - CO2 25 mmol/L (21-32); CHLORIDE 107 mmol/L (101-111); CREATININE 0.7 mg/dL (0.6-1.2); GFR - MDRD 120 (>89); GLUCOSE 109 mg/dL (70-100); POTASSIUM 4.1 mmol/L (3.5-5.0); SODIUM 139 mmol/L (135-145); TOTAL PROTEIN 7.5 g/dL (6.7-8.2)
[2022-10-16 20:40] LABS: VALPROIC ACID (DEPAKOTE) < 10.0 ug/mL
== END 2022-10-16 14:36 | disposition home or self-care (01) ==
LOC: LAB 14:35
PROVIDERS: ATTEND Psychiatry & Neurology Neurology
DX: G40.909 Epilepsy, unspecified, not intractable, without status epilepticus (principal)
CPT/HCPCS: 36415; 80053; 80164; 80175; 85025